=== PATIENT | male | born 1965 | race American Indian/Alaskan Native ===

== ENCOUNTER 2017-08-14 19:13 | Emergency (ER) | payer MEDICARE, MEDICAID ==
[2017-08-14 19:13] VITALS: BMI 34.9
--- NOTE | 2017-08-14 19:39 | C.PDOC ---
History Of Present Illness 52 year old male with a Hx of CHF, HTN, and defibrillator presents to the ER with a complaint of SOB for the past week, associated with intermittent numbness to the bilateral hands and sputum. Patient states he feels like he cannot breath all the time and notes it worsens at night and when trying to lay flat. Denies cough, chest pain, known Hx of heart attacks, ETOH use, substance abuse, or leg swelling. Chief Complaint (Nursing): Shortness Of Breath History Per: Patient History/Exam Limitations: no limitations Onset/Duration Of Symptoms: Days (7), Persistent Current Symptoms Are (Timing): Still Present Initiating Event: Other (Not known) Exacerbating Factor(s): Laying Flat Associated Symptoms: Tingling In Hands Or Face (Numbness), Other (Sputum). denies: Chest Pain, Bloody Cough, Productive Cough, Ankle/Leg Swelling Recent travel outside of the [place]: No Past Medical History Reviewed: Historical Data, Nursing Documentation, Vital Signs Vital Signs: Last Vital Signs Temp 97.7 F 08/14/17 19:19 Pulse 72 08/14/17 19:19 Resp 16 08/14/17 20:23 BP 151/91 H 08/14/17 19:19 Pulse Ox 92 L 08/14/17 21:07 - Medical History PMH: Anxiety, Asthma, Back Problems, Cardia Arrhythmia, CHF, HTN, Hypercholesterolemia, Sleep Apnea Surgical History: Appendectomy, Pacemaker Family History: States: Unknown Family Hx - Social History Hx Tobacco Use: No Hx Alcohol Use: No Hx Substance Use: No - Immunization History Hx Tetanus Toxoid Vaccination: No Hx Influenza Vaccination: Yes Hx Pneumococcal Vaccination: Yes Review Of Systems Cardiovascular: Negative for: Chest Pain Respiratory: Positive for: Shortness of Breath, Sputum. Negative for: Cough Musculoskeletal: Negative for: Other (Leg swelling) Neurological: Positive for: Numbness (Intermittent to the bilateral hands) Physical Exam - Physical Exam Appears: Non-toxic, No Acute Distress, Other (Awake, Alert) Skin: Normal Color, Warm, Dry Head: Atraumatic, Normacephalic Eye(s): bilateral: Normal Inspection Ear(s): Bilateral: Normal Nose: Normal Oral Mucosa: Moist Teeth: Dentures Throat: Normal, No Erythema Neck: Normal, Supple Chest: Symmetrical, No Tenderness Cardiovascular: Rhythm Regular (S1 and S2 withing normal limits), No JVD Respiratory: Normal Breath Sounds, No Rales, No Rhonchi, No Wheezing Gastrointestinal/Abdominal: Soft, No Tenderness Extremity: No Pedal Edema Pulses: Left Radial: Normal, Right Radial: Normal, Left Dorsalis Pedis: Normal, Right Dorsalis Pedis: Normal Neurological/Psych: Oriented x3, Normal Speech, Other (No focal deficits) ED Course And Treatment - Laboratory Results Result Diagrams: 08/14/17 19:58 08/14/17 19:58 O2 Sat by Pulse Oximetry: 92 (Room air) - Radiology CXR: Interpreted by Me, Viewed By Me CXR Interpretation: Yes: Other (Enlagred cardiac silhouette, defibrillator w/ wires noted, mild pulmonary vascular edema) Medical Decision Making Medical Decision Making: EKG, blood work, and CXR ordered.Pt w/u consistent with mild exacerbation of zCCHF.Will increase pts evening diuretic Disposition - Disposition Referrals: Cliff Greene MD [Staff Provider] - Disposition: HOME/ ROUTINE Disposition Time: 21:05 Condition: GOOD Additional Instructions: increase nighttime lasix to 40 mg Instructions: Heart Failure (ED) Forms: [facility] (Martiniquais) - Clinical Impression Clinical Impression: Chronic congestive heart failure - Scribe Statement The provider has reviewed the documentation as recorded by the Scribe Asael Alvarado All medical record entries made by the Scribe were at my direction and personally dictated by me. I have reviewed the chart and agree that the record accurately reflects my personal performance of the history, physical exam, medical decision making, and the department course for this patient. I have also personally directed, reviewed, and agree with the discharge instructions and disposition.
[2017-08-14 20:07] LABS: BASO # 0.1 K/uL (0.0-0.2); EOS # 0.1 K/uL (0.0-0.7); EOS % 1.5 % (0.0-4.0); LYMPH # 2.4 K/uL (1.0-4.3); MEAN CELL VOLUME 89.7 fL (80.0-94.0); MEAN CORPUSCULAR HEMOGLOBIN 28.6 pg (27.0-31.0); MEAN CORPUSCULAR HGB CONC 31.9 g/dL (33.0-37.0); MEAN PLATELET VOLUME 9.2 fL (7.2-11.7); MONO # 0.5 K/uL (0.0-0.8); MONO % 8.6 % (0.0-10.0); NRBC % 0.1 % (0.0-2.0); RED CELL DISTRIBUTION WIDTH 14.7 % (11.5-14.5); WHITE BLOOD COUNT 5.6 K/uL (4.8-10.8)
[2017-08-14 20:14] LABS: ALB/GLOB RATIO 1.1 (1.0-2.1); ALKALINE PHOSPHATASE 48 U/L (38-126); ALT/SGPT 48 U/L (21-72); AST/SGOT 22 U/L (17-59); BILIRUBIN,TOTAL 0.3 mg/dL (0.2-1.3); BLOOD UREA NITROGEN 17 mg/dL (9-20); CALCIUM 8.2 mg/dl (8.6-10.4); CARBON DIOXIDE 36 mmol/L (22-30); CHLORIDE 103 mmol/L (98-107); GFR AFRICAN-AMERICAN > 60; GLUCOSE,RANDOM 101 mg/dL (75-110); POTASSIUM 3.7 mmol/L (3.6-5.2); SODIUM 142 mmol/L (132-148); TOTAL PROTEIN 7.1 g/dL (6.3-8.3)
[2017-08-14 20:17] LABS: PARTIAL THROMBOPLASTIN TIME 28 SECONDS (21-34)
[2017-08-14 21:22] VITALS: BP 139/90; PULSE 88; RESP 18; TEMP 97.2; O2SAT 96
--- NOTE | 2017-08-15 08:08 | RAD ---
HISTORY: Sepsis Patient COMPARISON: Comparison is made to 11/21/2014 FINDINGS: LUNGS: No evidence of focal infiltrate or consolidation in the lungs. PLEURA: No evidence of significant pleural effusion. CARDIOVASCULAR: Dex silhouette is enlarged. Left-sided pacemaker/AICD is again seen in place. OSSEOUS STRUCTURES: No significant abnormalities. VISUALIZED UPPER ABDOMEN: Normal. OTHER FINDINGS: None. IMPRESSION: No evidence of significant interval change when compared to the previous study dated 11/21/2014. Cardiomegaly.
--- NOTE | 2017-08-18 11:30 | CARD ---
APPROVED REPORT EKG Measurement Heart [id number] NV 158P51 [id number] <Conclusion> Normal sinus rhythm Possible Left atrial enlargement Left ventricular hypertrophy with repolarization abnormality Cannot rule out Inferior infarct, age undetermined Abnormal ECG
== END 2017-08-14 21:40 | disposition home or self-care (01) ==
LOC: C.ER 19:13
DX: I11.0 Hypertensive heart disease with heart failure (principal); I50.9 Heart failure, unspecified; I49.9 Cardiac arrhythmia, unspecified; E78.00 Pure hypercholesterolemia, unspecified
CPT/HCPCS: 71010; 80053; 83880; 84484; 85025; 85378; 85730; 96374; 99284; J1940

== ENCOUNTER 2017-08-21 09:44 | Emergency (ER) | payer MEDICARE, MEDICAID ==
[2017-08-21 09:45] VITALS: BMI 34.9
--- NOTE | 2017-08-21 10:19 | C.PDOC ---
History Of Present Illness 52 year old male presents to ED for evaluation of shortness of breath since this morning. Pt reports being seen here 1 weeks ago for similar symptoms and was given Lasix. Denies chest pain, cough, or fever. Time Seen by Provider: 08/21/17 09:56 Chief Complaint (Nursing): Shortness Of Breath History Per: Patient History/Exam Limitations: no limitations Onset/Duration Of Symptoms: Days Current Symptoms Are (Timing): Still Present Associated Symptoms: denies: Sweating, Chest Pain, Bloody Cough, Heart Racing, Leg/Calf Pain, Ankle/Leg Swelling, Dizziness, Light-headedness, Anxiety, Tingling In Hands Or Face, Musle Spasms In Hands Or Feet Past Medical History Reviewed: Historical Data, Nursing Documentation, Vital Signs Vital Signs: Last Vital Signs Temp 98.4 F 08/21/17 11:56 Pulse 88 08/21/17 11:56 Resp 18 08/21/17 11:56 BP 136/82 08/21/17 11:56 Pulse Ox 100 08/21/17 12:15 - Medical History PMH: Anxiety, Asthma, Back Problems, Cardia Arrhythmia, CHF, HTN, Hypercholesterolemia, Sleep Apnea Denies: Chronic Kidney Disease Surgical History: Appendectomy, Pacemaker Family History: States: Unknown Family Hx - Social History Hx Tobacco Use: No Hx Alcohol Use: No Hx Substance Use: No - Immunization History Hx Tetanus Toxoid Vaccination: No Hx Influenza Vaccination: Yes Hx Pneumococcal Vaccination: Yes Review Of Systems Except As Marked, All Systems Reviewed And Found Negative. Constitutional: Negative for: Fever, Chills Cardiovascular: Negative for: Chest Pain, Palpitations Respiratory: Positive for: Shortness of Breath. Negative for: Cough, Sputum Neurological: Negative for: Headache, Dizziness Physical Exam - Physical Exam Appears: Non-toxic, No Acute Distress Skin: Normal Color, Warm, Dry Head: Atraumatic, Normacephalic Eye(s): bilateral: Normal Inspection Oral Mucosa: Moist Cardiovascular: Rhythm Regular, No Murmur Respiratory: Normal Breath Sounds, No Rales, No Rhonchi, No Wheezing Gastrointestinal/Abdominal: Soft, No Tenderness Extremity: Normal ROM, No Pedal Edema Neurological/Psych: Oriented x3, Normal Speech ED Course And Treatment - Laboratory Results Result Diagrams: 08/21/17 10:19 08/21/17 10:19 Lab Interpretation: Normal ECG: Interpreted By Me ECG Rhythm: Sinus Rhythm, Nonspecific Changes ECG Interpretation: No Acute Changes Rate From EC O2 Sat by Pulse Oximetry: 100 Pulse Ox Interpretation: Normal - Other Rad No standard instances X-Ray: Viewed By Me, Read By Radiologist Interpretation: FINDINGS: LUNGS: The interstitial markings are minimally increased/coarsened with a few scattered peribronchial cuffing changes. Findings may in part be due to diminished low lung volumes however the possibility of mild reactive/inflammatory airway disease or viral illness not excluded. Lung crawford are otherwise clear. PLEURA: No significant pleural effusion identified. No pneumothorax apparent. CARDIOVASCULAR: Heart is mildly enlarged. No change bipolar pacemaker/ defibrillator. OSSEOUS STRUCTURES : No significant abnormalities. VISUALIZED UPPER ABDOMEN: Normal. OTHER FINDINGS: None. IMPRESSION: The interstitial markings are minimally increased /coarsened with a few scattered peribronchial cuffing changes. Findings may in part be due to diminished low lung volumes however the possibility of mild reactive/inflammatory airway disease or viral illness not excluded. Lung crawford are otherwise clear Progress Note: Blood work, UA, influenza AB, CXR, EKG ordered and reviewed. Pt was given Duoneb. On re-evaluation lungs clear. Treated with decadron and zithromax. Patient requesting discharge. discharged in stable condition Reassessment Condition: Improved Disposition Counseled Patient/Family Regarding: Studies Performed, Diagnosis, Need For Followup, Rx Given - Disposition Referrals: Cliff Greene MD [Staff Provider] - Disposition: HOME/ ROUTINE Disposition Time: 12:20 Condition: STABLE Additional Instructions: Return to ED if any increase symptoms Prescriptions: Azithromycin [Zithromax] 250 mg PO DAILY #4 tab Instructions: Acute Bronchitis (ED), How to Use a Nebulizer (ED), How Your Lungs Work (ED) Forms: [facility] (Wallisian) - POA Present On Arrival: None - Clinical Impression Clinical Impression: Bronchitis - 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 - Scribe Statement The provider has reviewed the documentation as recorded by the Perry Hedrick All medical record entries made by the Scribe were at my direction and personally dictated by me. I have reviewed the chart and agree that the record accurately reflects my personal performance of the history, physical exam, medical decision making, and the department course for this patient. I have also personally directed, reviewed, and agree with the discharge instructions and disposition.
[2017-08-21 10:24] LABS: BASO # 0.1 K/uL (0.0-0.2); BASO % 1.6 % (0.0-2.0); EOS # 0.1 K/uL (0.0-0.7); EOS % 2.2 % (0.0-4.0); HEMATOCRIT 43.2 % (35.0-51.0); LYMPH # 1.3 K/uL (1.0-4.3); LYMPH % 38.7 % (20.0-40.0); MEAN CELL VOLUME 89.1 fL (80.0-94.0); MEAN CORPUSCULAR HEMOGLOBIN 28.7 pg (27.0-31.0); MEAN CORPUSCULAR HGB CONC 32.2 g/dL (33.0-37.0); MEAN PLATELET VOLUME 8.7 fL (7.2-11.7); MONO # 0.3 K/uL (0.0-0.8); MONO % 8.7 % (0.0-10.0); NRBC % 0.3 % (0.0-2.0); RED CELL DISTRIBUTION WIDTH 14.5 % (11.5-14.5); WHITE BLOOD COUNT 3.4 K/uL (4.8-10.8)
[2017-08-21] MEDS: Albuterol-Ipratrop 3 mg / 0.5 (3 ml) UD IH SCH ×2 (10:25→10:35)
[2017-08-21] MEDS ORDERED: Albuterol-Ipratrop 3 mg / 0.5 (3 ml) UD ONE (10:26)
--- NOTE | 2017-08-21 10:32 | RAD ---
HISTORY: SOB COMPARISON: Comparison chest dated 08/14/2017 TECHNIQUE: Chest PA and lateral FINDINGS: LUNGS: The interstitial markings are minimally increased/coarsened with a few scattered peribronchial cuffing changes. Findings may in part be due to diminished low lung volumes however the possibility of mild reactive/inflammatory airway disease or viral illness not excluded. Lung crawford are otherwise clear PLEURA: No significant pleural effusion identified. No pneumothorax apparent. CARDIOVASCULAR: Heart is mildly enlarged. No change bipolar pacemaker/ defibrillator. OSSEOUS STRUCTURES: No significant abnormalities. VISUALIZED UPPER ABDOMEN: Normal. OTHER FINDINGS: None. IMPRESSION: The interstitial markings are minimally increased/coarsened with a few scattered peribronchial cuffing changes. Findings may in part be due to diminished low lung volumes however the possibility of mild reactive/inflammatory airway disease or viral illness not excluded. Lung crawford are otherwise clear
[2017-08-21 10:37] LABS: ALB/GLOB RATIO 1.6 (1.0-2.1); ALKALINE PHOSPHATASE 52 U/L (38-126); ALT/SGPT 47 U/L (21-72); AST/SGOT 27 U/L (17-59); BILIRUBIN,TOTAL 0.6 mg/dL (0.2-1.3); BLOOD UREA NITROGEN 13 mg/dL (9-20); CALCIUM 8.2 mg/dl (8.6-10.4); CARBON DIOXIDE 30 mmol/L (22-30); CHLORIDE 108 mmol/L (98-107); GFR AFRICAN-AMERICAN > 60; GLUCOSE,RANDOM 140 mg/dL (75-110); POTASSIUM 4.1 mmol/L (3.6-5.2); SODIUM 143 mmol/L (132-148); TOTAL PROTEIN 6.4 g/dL (6.3-8.3)
[2017-08-21 11:49] LABS: RBC URINE < 1 /hpf (0-3); URINE BILIRUBIN NEGATIVE (NEGATIVE); URINE BLOOD NEGATIVE (NEGATIVE); URINE COLOR Yellow (YELLOW); URINE GLUCOSE (UA) NORMAL (Normal); URINE KETONE NEGATIVE (NEGATIVE); URINE LEUKOCYTE ESTERASE NEG Leu/uL (Negative); URINE PROTEIN NEGATIVE (NEGATIVE); URINE UROBILINOGEN NORMAL mg/dL (0.2-1.0); WBC URINE < 1 /hpf (0-5)
[2017-08-21 11:57] VITALS: BP 136/82; PULSE 88; RESP 18; TEMP 98.4
[2017-08-21] MEDS ORDERED: Dexamethasone 4 mg/1 ml IVP STA (12:01)
[2017-08-21 12:15] VITALS: O2SAT 100
--- NOTE | 2017-08-24 22:26 | CARD ---
APPROVED REPORT EKG Measurement Heart [id number] CO 152P41 [id number] <Conclusion> Normal sinus rhythm Possible Left atrial enlargement Left ventricular hypertrophy with QRS widening and repolarization abnormality Cannot rule out Inferior infarct, age undetermined Abnormal ECG
== END 2017-08-21 12:17 | disposition home or self-care (01) ==
LOC: C.ER 09:44
DX: J40 Bronchitis, not specified as acute or chronic (principal)
CPT/HCPCS: 71020; 80053; 81001; 82553; 83880; 84484; 85025; 87804; 93005; 94150; 94640; 96374; 99285; J1100

== ENCOUNTER 2017-09-26 17:40 | Emergency (ER) | payer MEDICARE, MEDICAID ==
[2017-09-26 17:40] VITALS: BMI 34.9
[2017-09-26 18:06] VITALS: RESP 20; O2SAT 97
--- NOTE | 2017-09-26 18:45 | C.PDOC ---
History Of Present Illness 52M c/o left shoulder pain for years since high school but worsened 2 days ago without trauma/injury. pain is worse with rom of the arm and with pushing himself up from a supine position. he has tried tylenol without relief. Time Seen by Provider: 09/26/17 18:43 Chief Complaint (Nursing): Upper Extremity Problem/Injury Past Medical History Vital Signs: Last Vital Signs Temp 98 F 09/26/17 19:33 Pulse 88 09/26/17 19:33 Resp 20 09/26/17 19:33 BP 143/81 09/26/17 19:33 Pulse Ox 97 09/26/17 19:41 - Medical History PMH: Anxiety, Asthma, Back Problems, Cardia Arrhythmia, CHF, HTN, Hypercholesterolemia, Sleep Apnea Denies: Chronic Kidney Disease Surgical History: Appendectomy, Pacemaker Family History: States: Unknown Family Hx - Social History Hx Tobacco Use: No Hx Alcohol Use: No Hx Substance Use: No - Immunization History Hx Tetanus Toxoid Vaccination: No Hx Influenza Vaccination: Yes Hx Pneumococcal Vaccination: Yes Review Of Systems Constitutional: Negative for: Fever, Chills, Weakness, Malaise Cardiovascular: Negative for: Chest Pain, Palpitations Respiratory: Positive for: Cough (chronic). Negative for: Shortness of Breath Gastrointestinal: Negative for: Nausea, Vomiting, Abdominal Pain Neurological: Negative for: Weakness, Numbness, Headache Physical Exam - Physical Exam Appears: Well, Non-toxic, No Acute Distress Skin: Warm, Dry Cardiovascular: Rhythm Regular Respiratory: No Decreased Breath Sounds, No Accessory Muscle Use, No Rales, No Rhonchi, No Stridor, No Wheezing Extremity: Normal ROM, No Deformity, No Swelling, Other (pain w rom, particularly with abduction of left shoulder. no swelling, erythema, or warmth) Pulses: Left Radial: Normal Neurological/Psych: Oriented x3, Normal Motor, Normal Sensation, Other (no focal deficits) ED Course And Treatment O2 Sat by Pulse Oximetry: 97 Medical Decision Making Medical Decision Making: ecg- nsr 74, lvh, wide qrs, no stemi shoulder left xr- no acute fracture Disposition - Disposition Referrals: Zack Billingsley III, MD [Staff Provider] - Disposition: HOME/ ROUTINE Disposition Time: 19:41 Condition: GOOD Additional Instructions: Please follow up with an orthopedic doctor. Return to the ER for any worsening symptoms or for any other concerns. Prescriptions: Naproxen [Naprosyn] 500 mg PO Q12H PRN #10 tablet PRN Reason: Pain, Moderate (4-7) Instructions: Shoulder Pain (ED) Forms: General Discharge Instructions, [facility] (Hebrew) - Clinical Impression Clinical Impression: Shoulder pain
[2017-09-26] MEDS ORDERED: Albuterol-Ipratrop 3 mg / 0.5 (3 ml) UD IH STA (19:05)
[2017-09-26] MEDS ORDERED: Albuterol-Ipratrop 3 mg / 0.5 (3 ml) UD ONE (19:28)
[2017-09-26 19:54] VITALS: BP 143/81; PULSE 88; TEMP 98
--- NOTE | 2017-09-27 12:33 | RAD ---
PROCEDURE: Radiographs of the Left Shoulder HISTORY: pain COMPARISON: No prior. FINDINGS: BONES: Normal. No fracture. JOINTS: Normal. Glenohumeral and acromioclavicular joints preserved. No osteoarthritis. SOFT TISSUES: Normal. OTHER FINDINGS: None. IMPRESSION: Normal radiographs of the left shoulder.
--- NOTE | 2017-09-28 23:32 | CARD ---
APPROVED REPORT EKG Measurement Heart [id number] ND 150P48 [id number] <Conclusion> Sinus rhythm with occasional premature ventricular complexes Possible Left atrial enlargement Left ventricular hypertrophy with QRS widening and repolarization abnormality Cannot rule out Inferior infarct, age undetermined Abnormal ECG
== END 2017-09-26 19:55 | disposition home or self-care (01) ==
LOC: C.ER 17:40
DX: M25.512 Pain in left shoulder (principal); J45.909 Unspecified asthma, uncomplicated; I10 Essential (primary) hypertension
CPT/HCPCS: 73030; 93005; 94640; 96372; 99283; J1885

== ENCOUNTER 2017-11-22 10:40 | Emergency (ER) | payer MEDICARE, MEDICAID ==
[2017-11-22 10:40] VITALS: BMI 34.9
[2017-11-22 10:46] VITALS: O2SAT 97
--- NOTE | 2017-11-22 11:13 | C.PDOC ---
History Of Present Illness RECUR SOB/PARKER X 3 DAYS. HO CHF ON LASIX 40 MG BID TOOK ROUTINE DOSE SPECIAL TESTER. NO ASSOC CP, DEFIB DC. DENIES LEG SWELLING, FEVER. HO ASTHMA BUT CURRENT SX "FEEL LIKE WATER IN MY LUNGS". EXAM MILD DIST NONTOXIC HEENT NEG LUNGS CTA B/L NO W/R/R SPEAKING FULL SENTENCES CV RRR EXT NO EDEMA REMAINDER NEG Time Seen by Provider: 11/22/17 10:53 Chief Complaint (Nursing): Shortness Of Breath History Per: Patient History/Exam Limitations: no limitations Onset/Duration Of Symptoms: Days Current Symptoms Are (Timing): Still Present Past Medical History Reviewed: Historical Data, Nursing Documentation, Vital Signs Vital Signs: Last Vital Signs Temp 97.8 F 11/22/17 13:21 Pulse 70 11/22/17 13:21 Resp 18 11/22/17 13:21 BP 131/86 11/22/17 13:21 Pulse Ox 97 11/22/17 13:21 - Medical History PMH: Anxiety, Asthma, Back Problems, Cardia Arrhythmia, CHF, HTN, Hypercholesterolemia, Sleep Apnea Surgical History: Appendectomy, Pacemaker (DEFIB) Family History: States: No Known Family Hx - Social History Hx Tobacco Use: No Hx Alcohol Use: No Hx Substance Use: No - Immunization History Hx Tetanus Toxoid Vaccination: No Hx Influenza Vaccination: Yes Hx Pneumococcal Vaccination: Yes Review Of Systems Constitutional: Negative for: Fever, Chills Cardiovascular: Negative for: Chest Pain, Palpitations Respiratory: Positive for: Shortness of Breath, SOB with Excertion Gastrointestinal: Negative for: Nausea, Vomiting Musculoskeletal: Negative for: Back Pain Skin: Negative for: Rash Neurological: Negative for: Weakness, Numbness, Headache, Dizziness Physical Exam - Physical Exam Appears: Non-toxic, No Acute Distress Skin: Warm, Dry, No Rash Head: Normacephalic Eye(s): bilateral: PERRL Nose: Normal, No Flaring, No Discharge Oral Mucosa: Moist Lips: Normal Appearing Throat: No Erythema, No Exudate Neck: Normal ROM Chest: Symmetrical Cardiovascular: Rhythm Regular, No Murmur Respiratory: No Decreased Breath Sounds, No Accessory Muscle Use, No Rales, No Rhonchi, No Wheezing, Other ( CTA B/L. SPEAKING FULL SENTENCES) Extremity: Normal ROM, No Deformity, No Swelling Neurological/Psych: Oriented x3, Normal Speech ED Course And Treatment - Laboratory Results Result Diagrams: 11/22/17 11:23 11/22/17 11:23 ECG: Interpreted By Me ECG Rhythm: Sinus Rhythm ECG Interpretation: No Acute Changes Interpretation Of ECG: TWI V5-6 UNCH 09/26/17 Rate From EC O2 Sat by Pulse Oximetry: 97 Pulse Ox Interpretation: Normal Progress - Re-Evaluation Re-evaluation Note: 11/22/17 12:12 NARD APPEARS COMFORTABLE VSS. RESULTS REVIEWED. WILL DOSE PREDNISONE, NEB REASSESS - Data Reviewed Data Reviewed: Lab, Diagnostic imaging, EKG, Old records Disposition Counseled Patient/Family Regarding: Studies Performed, Diagnosis, Need For Followup, Rx Given - Disposition Referrals: Cliff Greene MD [Staff Provider] - Disposition: HOME/ ROUTINE Disposition Time: 12:56 Condition: IMPROVED Prescriptions: Beclomethasone Dipropionate [Qvar 80 mcg] 8.7 gm IH BID #1 aer.w.adap Instructions: Asthma, Adult (DC) Forms: [facility] (Khmer), Work Excuse - Clinical Impression Clinical Impression: Asthma exacerbation
[2017-11-22 11:33] LABS: BASO % 0.9 % (0.0-2.0); EOS # 0.1 K/uL (0.0-0.7); EOS % 2.1 % (0.0-4.0); HEMOGLOBIN 12.9 g/dL (12.0-18.0); LYMPH # 1.5 K/uL (1.0-4.3); LYMPH % 38.9 % (20.0-40.0); MEAN CELL VOLUME 88.7 fL (80.0-94.0); MEAN CORPUSCULAR HEMOGLOBIN 29.4 pg (27.0-31.0); MEAN CORPUSCULAR HGB CONC 33.1 g/dL (33.0-37.0); MEAN PLATELET VOLUME 9.1 fL (7.2-11.7); MONO # 0.3 K/uL (0.0-0.8); MONO % 8.7 % (0.0-10.0); NEUT % 49.4 % (50.0-75.0); NRBC % 0.1 % (0.0-2.0); RBC 4.4 Mil/uL (4.40-5.90); RED CELL DISTRIBUTION WIDTH 14.2 % (11.5-14.5)
[2017-11-22 11:45] LABS: CALCIUM 8.2 mg/dl (8.6-10.4)
[2017-11-22 11:50] LABS: ALB/GLOB RATIO 1.2 (1.0-2.1); ALBUMIN 3.7 g/dL (3.5-5.0)
[2017-11-22 12:01] LABS: TROPONIN I 0.023 ng/mL (0.00-0.120)
[2017-11-22] MEDS ORDERED: Albuterol-Ipratrop 3 mg / 0.5 (3 ml) UD IH STA (12:08)
--- NOTE | 2017-11-22 12:19 | RAD ---
HISTORY: SOB COMPARISON: 08/21/2017 TECHNIQUE: Chest PA and lateral FINDINGS: LUNGS: No active pulmonary disease. PLEURA: No significant pleural effusion identified. No pneumothorax apparent. CARDIOVASCULAR: Mild cardiomegaly. AICD. No congestive change. OSSEOUS STRUCTURES: No significant abnormalities. VISUALIZED UPPER ABDOMEN: Normal. OTHER FINDINGS: None. IMPRESSION: No active disease.
[2017-11-22] MEDS ORDERED: Albuterol-Ipratrop 3 mg / 0.5 (3 ml) UD ONE (12:46)
[2017-11-22 13:22] VITALS: BP 131/86; PULSE 70; RESP 18; TEMP 97.8
== END 2017-11-22 13:27 | disposition home or self-care (01) ==
LOC: C.ER 10:40
DX: J45.901 Unspecified asthma with (acute) exacerbation (principal); I49.9 Cardiac arrhythmia, unspecified; I10 Essential (primary) hypertension; E78.00 Pure hypercholesterolemia, unspecified

== ENCOUNTER 2017-12-22 23:23 | Emergency (ER) | payer MEDICARE, MEDICAID ==
[2017-12-22 23:24] VITALS: BMI 34.9
[2017-12-22 23:40] VITALS: BP 116/75; PULSE 92; TEMP 97.2; O2SAT 96
--- NOTE | 2017-12-23 00:09 | C.PDOC ---
History Of Present Illness 52M c/o left shoulder pain for years since high school ( hx of left shoulder dislocation)but worsened for past 3 months " after pulled my left arm while carrying heavy bag". pain is localized over Left upper shoulder, worse with Left arm lifting. Pt admits, was seen here few months ago due to same complaints and was given Rx with good improvement n pain, request refill. Otherwise, pt denies CP, SOB, dyspnea, palpitation, denies weakness, sensory or vascular deficits to Left arm. Ambulate to ED , not in any apparent distress. Time Seen by Provider: 12/22/17 23:55 Chief Complaint (Nursing): Upper Extremity Problem/Injury History Per: Patient Onset/Duration Of Symptoms: Gradual Past Medical History Reviewed: Historical Data, Nursing Documentation, Vital Signs Vital Signs: Last Vital Signs Temp 97.2 F L 12/22/17 23:37 Pulse 92 H 12/22/17 23:37 Resp 18 12/22/17 23:37 BP 116/75 12/22/17 23:37 Pulse Ox 96 12/22/17 23:37 - Medical History PMH: Anxiety, Asthma, Back Problems, Cardia Arrhythmia, CHF, HTN, Hypercholesterolemia, Sleep Apnea Denies: Chronic Kidney Disease Surgical History: Appendectomy (PT NOT SURE), Pacemaker (DEFIB) Family History: States: Unknown Family Hx - Social History Hx Tobacco Use: No Hx Alcohol Use: No Hx Substance Use: No - Immunization History Hx Tetanus Toxoid Vaccination: No Hx Influenza Vaccination: Yes Hx Pneumococcal Vaccination: Yes Review Of Systems Except As Marked, All Systems Reviewed And Found Negative. Constitutional: Negative for: Fever, Chills ENT: Negative for: Throat Pain Cardiovascular: Negative for: Chest Pain, Palpitations, Orthopnea, Edema, Light Headedness Respiratory: Negative for: Cough, Shortness of Breath, Wheezing Gastrointestinal: Negative for: Nausea, Vomiting, Abdominal Pain Musculoskeletal: Positive for: Shoulder Pain Skin: Negative for: Rash, Bruising Neurological: Negative for: Weakness, Numbness, Headache, Dizziness Physical Exam - Physical Exam Appears: Well, Non-toxic, No Acute Distress Skin: Normal Color, Warm, No Rash, No Ecchymosis Head: Normacephalic Eye(s): bilateral: PERRL Nose: No Flaring Oral Mucosa: Moist Neck: No Midline Cervical Tenderness, No Paracervical Tenderness, No Step Off Deformity, Supple Back: No CVA Tenderness, No Vertebral Tenderness Extremity: Normal ROM (LUE without difficulty), Tenderness (mild over superior aspect left shoulder.), Capillary Refill (less than 2sec to left hand), No Deformity, No Swelling Neurological/Psych: Oriented x3, Normal Speech, Normal Motor, Normal Sensation, Normal Reflexes ED Course And Treatment O2 Sat by Pulse Oximetry: 96 Pulse Ox Interpretation: Normal Progress Note: Records review from previous ED visits. Pt was seen here in ED on 09/26/17 due to same left shoulder pain complaint, received Rx: naprosyn. On discharge, pt requested Rx: Flexeril ( was not seen in records). EKG, Xray of left shoulder review from previous visit- no acute findings. On re-eval, pt is afebrile, hemodynamicaly stable. Non-toxic. Lungs: CTA B/L,BS equal B/L. CVS : (+)S1S2, reg. LUE: mild tenderness over superior aspect Left shoulder. FAROM , no neurovascular deficits. Pt has clinical findings c/w Left shoulder pain r/ o rotator cuff tendonitis. Pt advised and ref. to F/u with PMD, Ortho in 1-2 days for re-eval. return if any worsening or new hcanges. Disposition Counseled Patient/Family Regarding: Diagnosis, Need For Followup, Rx Given - Disposition Referrals: Cliff Greene MD [Staff Provider] - Disposition: HOME/ ROUTINE Disposition Time: 00:07 Condition: STABLE Additional Instructions: Light duty to Left arm/shoulder. Avoid left arm lifting. Take pain medication as prescribed Follow up with PMD and Orthopedist in 2 days for re-evaluation. Return to ED if any worsening or new changes. Prescriptions: Cyclobenzaprine [Cyclobenzaprine HCl] 10 mg PO BID #10 tab Naproxen [Naprosyn] 1 tab PO BID PRN #30 tab PRN Reason: Pain Instructions: Shoulder Pain (DC), Rotator Cuff Tendinitis Stretching Exercises - Clinical Impression Clinical Impression: Rotator cuff tendonitis
[2017-12-23 00:48] VITALS: RESP 20
== END 2017-12-23 00:48 | disposition home or self-care (01) ==
LOC: C.ER 23:23
DX: M77.8 Other enthesopathies, not elsewhere classified (principal)
CPT/HCPCS: 96372; 99284; J1885

== ENCOUNTER → 2018-01-20 11:51 | Emergency (ER) | payer MEDICARE, MEDICAID ==
[2018-01-20 11:51] VITALS: BMI 34.9
== END | disposition left against medical advice (07) ==
LOC: C.ER 11:51
DX: Z02.89 Encounter for other administrative examinations (principal); R06.02 Shortness of breath

== ENCOUNTER 2018-02-15 13:55 | Emergency (ER) | payer MEDICARE, MEDICAID ==
[2018-02-15 13:55] VITALS: BMI 34.9
[2018-02-15 14:03] VITALS: BP 124/86; PULSE 74; RESP 18; TEMP 97.5; O2SAT 96
--- NOTE | 2018-02-15 14:29 | C.PDOC ---
History Of Present Illness 52 y/o male presents to the ED with complaints of nasal congestion and sinus pressure for the last 3 days. Patient also notes some associated lightheadedness that he thinks is related to his sinus pressure. He denies fever, productive cough, purulent discharge from nose, ear pain, sore throat, SOB, chest pain, palpitations, rash. Time Seen by Provider: 02/15/18 14:11 Chief Complaint (Nursing): Cough, Cold, Congestion History Per: Patient History/Exam Limitations: None Onset/Duration Of Symptoms: Days (3) Current Symptoms Are (Timing): Still Present Symptoms Have Been: Continuous Severity: Mild Past Medical History Reviewed: Historical Data, Nursing Documentation, Vital Signs Vital Signs: Last Vital Signs Temp 97.5 F L 02/15/18 14:00 Pulse 74 02/15/18 14:00 Resp 18 02/15/18 14:00 BP 124/86 02/15/18 14:00 Pulse Ox 96 02/15/18 15:15 - Medical History PMH: Anxiety, Asthma, Back Problems, Cardia Arrhythmia, CHF, HTN, Hypercholesterolemia, Sleep Apnea Surgical History: Appendectomy (PT NOT SURE), Pacemaker (DEFIB) Family History: States: No Known Family Hx - Social History Hx Tobacco Use: No Hx Alcohol Use: No Hx Substance Use: No - Immunization History Hx Tetanus Toxoid Vaccination: No Hx Influenza Vaccination: Yes Hx Pneumococcal Vaccination: Yes Review Of Systems Constitutional: Negative for: Fever, Chills ENT: Positive for: Nose Congestion, Other (sinus pressure). Negative for: Ear Pain, Throat Pain Cardiovascular: Negative for: Chest Pain, Palpitations Respiratory: Negative for: Cough, Shortness of Breath Neurological: Positive for: Other (lightheadedness) Physical Exam - Physical Exam Appears: Well, Non-toxic, No Acute Distress Eye(s): bilateral: Normal Inspection Ear(s): Bilateral: Normal Nose: Normal, No Discharge, No Deformity, No Tenderness ((-) tenderness to palpation over maxillary and frontal sinuses) Throat: Normal, No Erythema, No Exudate Neck: Supple Cardiovascular: Rhythm Regular Respiratory: Normal Breath Sounds, No Rales, No Rhonchi, No Wheezing, Other ( speaking in full setnences) Neurological/Psych: Oriented x3, Normal Speech, Normal Cognition Gait: Steady ED Course And Treatment O2 Sat by Pulse Oximetry: 96 (RA) Pulse Ox Interpretation: Normal Progress Note: Patient has h/o HTN & CHF, so explained to him that decongestants such as sudafed are not good for him. Rx for Nasonex given for patient to try. He was instructed to follow up with PMD/clinic in 1-2 days, and understands he should return to ED if symptoms worsen. Disposition Counseled Patient/Family Regarding: Diagnosis, Need For Followup, Rx Given - Disposition Referrals: Cliff Greene MD [Staff Provider] - Disposition: HOME/ ROUTINE Disposition Time: 14:30 Condition: STABLE Additional Instructions: FOLLOW UP WITH YOUR DOCTOR IN 1-2 DAYS USE MEDICATION NEEDED RETURN TO ER IF SYMPTOMS WORSEN Prescriptions: Mometasone Furoate [Nasonex] 0.05 mg NS DAILY #1 bottle Instructions: Cough, Runny Nose, and the Common Cold (DC) Forms: [employer] (Sinhala) Print Language: HONG KONGER - POA Present On Arrival: None - Clinical Impression Clinical Impression: Nasal congestion, Viral disease, Sinus pressure - Scribe Statement The provider has reviewed the documentation as recorded by the Scribe Penny Keen All medical record entries made by the Scribe were at my direction and personally dictated by me. I have reviewed the chart and agree that the record accurately reflects my personal performance of the history, physical exam, medical decision making, and the department course for this patient. I have also personally directed, reviewed, and agree with the discharge instructions and disposition.
== END 2018-02-15 14:45 | disposition home or self-care (01) ==
LOC: C.ER 13:55
DX: B34.9 Viral infection, unspecified (principal); R09.81 Nasal congestion

== ENCOUNTER 2018-06-01 23:03 | Emergency (ER) | payer MEDICARE, MEDICAID ==
[2018-06-01 23:03] VITALS: BMI 34.9
[2018-06-01 23:11] VITALS: RESP 20; O2SAT 95
--- NOTE | 2018-06-01 23:39 | C.PDOC ---
History Of Present Illness Patient presents to the ER with a complaint of SOB. Patient states he feels better when he is sitting as opposed to laying down. Patient is currently speaking in complete sentences, denies chest pain, fever, chills, nausea, or vomiting. Time Seen by Provider: 06/01/18 23:37 Chief Complaint (Nursing): Shortness Of Breath History Per: Patient History/Exam Limitations: no limitations Onset/Duration Of Symptoms: Days Current Symptoms Are (Timing): Still Present Initiating Event: Other (Not known) Exacerbating Factor(s): Laying Flat Current Respiratory Medications: None Severity: Moderate Pain Scale Rating Of: 4 Associated Symptoms: Other ((+) SOB (-) Nausea, Vomiting). denies: Fever, Chills, Chest Pain Recent travel outside of the [place]: No Past Medical History Reviewed: Historical Data, Nursing Documentation, Vital Signs Vital Signs: Last Vital Signs Temp 98 F 06/01/18 23:09 Pulse 88 06/01/18 23:09 Resp 20 06/02/18 00:00 BP 145/88 06/01/18 23:09 Pulse Ox 95 06/02/18 00:34 - Medical History PMH: Anxiety, Asthma, Back Problems, Cardia Arrhythmia, CHF, HTN, Hypercholesterolemia, Sleep Apnea Denies: Chronic Kidney Disease Surgical History: Pacemaker (DEFIB) Denies: Appendectomy Family History: States: No Known Family Hx - Social History Hx Tobacco Use: No Hx Alcohol Use: No Hx Substance Use: No - Immunization History Hx Tetanus Toxoid Vaccination: No Hx Influenza Vaccination: Yes Hx Pneumococcal Vaccination: Yes Review Of Systems Constitutional: Negative for: Fever, Chills Cardiovascular: Negative for: Chest Pain, Palpitations Respiratory: Positive for: Shortness of Breath. Negative for: Cough Gastrointestinal: Negative for: Nausea, Vomiting Neurological: Negative for: Weakness, Numbness Physical Exam - Physical Exam Appears: Non-toxic Skin: Warm, Dry Head: Normacephalic Oral Mucosa: Moist Chest: No Tenderness, Other (Pacemaker defibrillator to left chest wall) Cardiovascular: Rhythm Regular Respiratory: Rales (At bases), No Rhonchi, No Wheezing Gastrointestinal/Abdominal: Soft, No Tenderness, Distention, Other (Tympanic to percussion) Extremity: No Pedal Edema Neurological/Psych: Oriented x3 ED Course And Treatment - Laboratory Results Result Diagrams: 06/01/18 23:41 06/01/18 23:41 ECG: Interpreted By Me, Viewed By Me ECG Rhythm: Sinus Rhythm (80), Nonspecific Changes (lvh with repo, unchanged from 11/22/17) O2 Sat by Pulse Oximetry: 95 (Room air) Pulse Ox Interpretation: Normal - Radiology CXR: Interpreted by Me, Viewed By Me CXR Interpretation: Yes: Cardiomegaly. No: Infiltrates, Fracture, Other (aicd lefty, mild vasc congestion) Progress Note: Blood work, EKG, and CXR ordered. Aspirin administered. Reevaluation Time: 01:16 Reassessment Condition: Improved Against Medical Advice - AMA Patient Left Against Medical Advice: The patient declines admission to the hospital and wishes to leave the Emergency Department. This action is against my medical advice. This decision was made wi th informed refusal. The patient was told that admission to the hospital is necessary. Explanation of the reasons why were discussed. The risks of leaving were explained to the patient and include, but are not limited to, worsening of known or currently unknown conditions, permanent disability and from undiagnosed or untreated conditions. The patient has the capacity to make this informed decision and understands my explanation of the current medical problem and risks of leaving. The patient voluntarily accepts these risks and signed an AMA form documenting our conversation. The patient was given the opportunity to ask questions and reconsider. The patient was encouraged to return to the Emergency Department at any time for further care. Disposition Counseled Patient/Family Regarding: Studies Performed, Diagnosis, Need For Followup - Disposition Referrals: Cliff Greene MD [Primary Care Provider] - Disposition: AGAINST MEDICAL ADVICE Disposition Time: 23:30 Condition: FAIR Instructions: Shortness of Breath (Dyspnea) (DC) Forms: [employer] (Chinese) - Clinical Impression Clinical Impression: Dyspnea - Scribe Statement The provider has reviewed the documentation as recorded by the Scribe Asael Alvarado All medical record entries made by the Scribe were at my direction and personally dictated by me. I have reviewed the chart and agree that the record accurately reflects my personal performance of the history, physical exam, medical decision making, and the department course for this patient. I have also personally directed, reviewed, and agree with the discharge instructions and disposition.
[2018-06-01 23:44] LABS: BASO % 0.9 % (0.0-2.0); EOS % 0.3 % (0.0-4.0); HEMOGLOBIN 13.4 g/dL (12.0-18.0); LYMPH # 0.7 K/uL (1.0-4.3); LYMPH % 16.3 % (20.0-40.0); MEAN CELL VOLUME 88.8 fL (80.0-94.0); MEAN CORPUSCULAR HGB CONC 33.7 g/dL (33.0-37.0); MEAN PLATELET VOLUME 9.2 fL (7.2-11.7); MONO # 0.1 K/uL (0.0-0.8); MONO % 2.5 % (0.0-10.0); NEUT # 3.6 K/uL (1.8-7.0); NRBC % 0.1 % (0.0-2.0); RBC 4.49 Mil/uL (4.40-5.90); WHITE BLOOD COUNT 4.5 K/uL (4.8-10.8)
[2018-06-01] MEDS ORDERED: Aspirin 325 mg EC Tablets PO STA (23:51)
[2018-06-01 23:53] LABS: INR 1.1; PROTHROMBIN TIME 12.3 SECONDS (9.7-12.2)
[2018-06-01 23:56] LABS: ALB/GLOB RATIO 1.5 (1.0-2.1); CALCIUM 9.2 mg/dl (8.6-10.4)
[2018-06-02 00:07] LABS: TROPONIN I 0.024 ng/mL (0.00-0.120)
[2018-06-02] MEDS ORDERED: Aspirin 325 mg EC Tablets PO ONE (00:33)
[2018-06-02 01:08] LABS: VENOUS BLOOD GAS BASE EXCESS 0.8 mmol/L (0.0-2.0); VENOUS BLOOD GAS PCO2 46 mmHg (40-60); VENOUS BLOOD GAS PO2 76 mm/Hg (30-55); VENOUS BLOOD PH 7.37 (7.32-7.43)
[2018-06-02 01:32] VITALS: BP 115/78; PULSE 90; TEMP 98.2
--- NOTE | 2018-06-02 10:58 | RAD ---
Date of service: 06/02/2018 PROCEDURE: CHEST RADIOGRAPH, 1 VIEW HISTORY: SOB COMPARISON: None available. FINDINGS: LUNGS: Pulmonary vascular +Thora. PLEURA: No pneumothorax or pleural fluid seen. CARDIOVASCULAR: Cardiomegaly. Mild pulmonary vascular congestion similar to that seen previously. Position/configuration of pacemaker Satisfactory. OSSEOUS STRUCTURES: No significant abnormalities. VISUALIZED UPPER ABDOMEN: Normal. OTHER FINDINGS: None. IMPRESSION: Cardiomegaly/mild pulmonary vascular congestion. Similar findings identified previously. Concordant results with the preliminary interpretation rendered by the emergency department physician procedure.
--- NOTE | 2018-06-02 11:37 | CARD ---
APPROVED REPORT Date of service: 06/01/2018 EKG Measurement Heart [id number] <Conclusion> Normal sinus rhythm Possible Left atrial enlargement Left ventricular hypertrophy with QRS widening and repolarization abnormality Cannot rule out Inferior infarct, age undetermined Abnormal ECG
== END 2018-06-02 01:20 | disposition left against medical advice (07) ==
LOC: C.ER 23:03 → SUPCPDRO 23:03 → C.ER 06-02 01:20
DX: R06.00 Dyspnea, unspecified (principal)

== ENCOUNTER 2018-07-11 11:31 | Emergency (ER) | payer MEDICARE, MEDICAID ==
[2018-07-11 11:31] VITALS: BMI 34.9
[2018-07-11 11:37] VITALS: BP 122/79; PULSE 80; RESP 18; TEMP 97.8; O2SAT 96
--- NOTE | 2018-07-11 12:25 | C.PDOC ---
History Of Present Illness 52 year old male presents to the ED complaining of neck pain from a tumor that radiates to left shoulder and left arm. Notes he has a mass on his cervical spine for a year. Pt was seen by PMD and was referred for CT scan and will see a surgeon as well. Reports he took Tylenol and Motrin with no relief over 8 hrs ago. States he is going to see his PMD, Dr. Sheth tomorrow. Denies any weakness, numbness, or any other symptoms. Time Seen by Provider: 07/11/18 12:04 Chief Complaint (Nursing): Back Pain History Per: Patient History/Exam Limitations: no limitations Onset/Duration Of Symptoms: Days Current Symptoms Are (Timing): Still Present Quality Of Discomfort: "Pain" Previous Symptoms: None Associated Symptoms: None Past Medical History Reviewed: Historical Data, Nursing Documentation, Vital Signs Vital Signs: Last Vital Signs Temp 97.8 F 07/11/18 11:35 Pulse 80 07/11/18 11:35 Resp 18 07/11/18 11:35 BP 122/79 07/11/18 11:35 Pulse Ox 96 07/11/18 11:35 - Medical History PMH: Anxiety, Asthma, Back Problems, Cardia Arrhythmia, CHF, HTN, Hypercholesterolemia, Sleep Apnea Denies: Chronic Kidney Disease Surgical History: Pacemaker (DEFIB) Denies: Appendectomy Family History: States: No Known Family Hx - Social History Hx Tobacco Use: No Hx Alcohol Use: No Hx Substance Use: No - Immunization History Hx Tetanus Toxoid Vaccination: No Hx Influenza Vaccination: Yes Hx Pneumococcal Vaccination: Yes Review Of Systems Except As Marked, All Systems Reviewed And Found Negative. Musculoskeletal: Positive for: Other (posterior neck pain that radiates to left shoulder) Neurological: Negative for: Weakness, Numbness Physical Exam - Physical Exam Appears: Well, Non-toxic Skin: Warm, Dry Head: Atraumatic, Normacephalic Eye(s): bilateral: Normal Inspection Nose: Normal Oral Mucosa: Moist Neck: Other (soft mass to distal left cervical spine. no warmth, no erythema, no evidence of abscess. ) Lymphatic: Normal Exam Chest: Symmetrical Cardiovascular: Rhythm Regular Respiratory: Normal Breath Sounds Back: No Decreased ROM, No Muscle Spasm, No Paraspinal Tenderness Extremity: Normal ROM Extremity: Bilateral: Atraumatic, Normal Color And Temperature, Normal ROM Neurological/Psych: Oriented x3, Normal Speech, Normal Motor, Normal Sensation Gait: Steady ED Course And Treatment O2 Sat by Pulse Oximetry: 96 (RA) Pulse Ox Interpretation: Normal Reassessment Condition: Improved Medical Decision Making Medical Decision Making: Plan - Toradol 60mg IM On re-examination, patient is resting comfortably in no acute distress. Patient reports improvement of symptoms. Patient given follow up instructions. Instructed to return to ER if symptoms worsen or new symptoms arise. Disposition Counseled Patient/Family Regarding: Diagnosis, Need For Followup, Rx Given - Disposition Referrals: Cliff Sheth MD [Staff Provider] - Disposition: HOME/ ROUTINE Disposition Time: 12:37 Condition: STABLE Additional Instructions: FOLLOW UP WITH DR. SHETH TOMORROW FOR GENERAL SURGEON REFERRAL AND IMAGING STUDIES. IF PAIN GETS WORSE OR ANY NEW CONCERNING SYMPTOMS DEVELOP RETURN TO ED. Instructions: [place] Forms: [facility] (Beninese), General Discharge Instructions - Clinical Impression Clinical Impression: Mass in neck - PA / DIRECTOR OF DISTRICT OFFICE / Resident Statement MD/DO has reviewed & agrees with the documentation as recorded. - Scribe Statement The provider has reviewed the documentation as recorded by the Scribjavad Frost All medical record entries made by the Eseibjavad were at my direction and personally dictated by me. I have reviewed the chart and agree that the record accurately reflects my personal performance of the history, physical exam, medical decision making, and the department course for this patient. I have also personally directed, reviewed, and agree with the discharge instructions and disposition.
== END 2018-07-11 12:51 | disposition home or self-care (01) ==
LOC: C.ER 11:31
DX: R22.1 Localized swelling, mass and lump, neck (principal)
CPT/HCPCS: 96372; 99284; J1885

== ENCOUNTER 2018-07-15 02:17 | Emergency (ER) | payer MEDICARE, MEDICAID ==
[2018-07-15 02:17] VITALS: BMI 34.9
[2018-07-15 02:44] VITALS: BP 129/90; PULSE 91; RESP 20; O2SAT 96
--- NOTE | 2018-07-15 02:52 | C.PDOC ---
History Of Present Illness 52 year old male with PMHx of lipoma presents to the ED for evaluation of lipoma to his posterior left neck area for the past year but states more recently started bothering him more. Patient states his pain is radiating down his let shoulder and down his left arm. Patient reports he had an appointment for a MRI today but was not able to due it due to having a pacemaker. Patient was seen in the ED on 07/11/18 for same presentation. Patient denies injury, fall, trauma, weakness, numbness, headache, dizziness, visual changes, CP, SOB, nausea, vomit. Time Seen by Provider: 07/15/18 02:36 Chief Complaint (Nursing): Upper Extremity Problem/Injury History Per: Patient History/Exam Limitations: no limitations Onset/Duration Of Symptoms: Persistent Current Symptoms Are (Timing): Still Present Quality: "Pain" Recent travel outside of the [place]: No Additional History Per: Patient Past Medical History Reviewed: Historical Data, Nursing Documentation, Vital Signs Vital Signs: Last Vital Signs Temp Pulse 91 H 07/15/18 02:28 Resp 20 07/15/18 02:28 BP 129/90 07/15/18 02:28 Pulse Ox 96 07/15/18 02:28 - Medical History PMH: Anxiety, Asthma, Back Problems, Cardia Arrhythmia, CHF, HTN, Hypercholesterolemia, Sleep Apnea Denies: Chronic Kidney Disease Surgical History: Pacemaker (DEFIB) Denies: Appendectomy Family History: States: Unknown Family Hx - Social History Hx Tobacco Use: No Hx Alcohol Use: No Hx Substance Use: No - Immunization History Hx Tetanus Toxoid Vaccination: No Hx Influenza Vaccination: Yes Hx Pneumococcal Vaccination: Yes Review Of Systems Constitutional: Negative for: Fever, Chills Eyes: Negative for: Vision Change Cardiovascular: Negative for: Chest Pain Respiratory: Negative for: Cough, Shortness of Breath Gastrointestinal: Negative for: Nausea, Vomiting Musculoskeletal: Positive for: Neck Pain Skin: Negative for: Rash Neurological: Negative for: Weakness, Numbness, Headache, Dizziness Physical Exam - Physical Exam Appears: Non-toxic, No Acute Distress Skin: Normal Color, Warm, Dry Head: Atraumatic, Normacephalic Eye(s): bilateral: Normal Inspection, PERRL, EOMI Oral Mucosa: Moist Neck: Normal ROM, Supple, Other (left posterior neck lipoma, area is mobile soft non fluctuant no erythema, warmth. ) Chest: Symmetrical Cardiovascular: Rhythm Regular Respiratory: Normal Breath Sounds, No Rales, No Rhonchi, No Wheezing Gastrointestinal/Abdominal: Soft, No Tenderness, No Guarding, No Rebound Back: Muscle Spasm (along left trapezius) Extremity: Normal ROM, No Tenderness, No Swelling Neurological/Psych: Oriented x3, Normal Speech, Normal Cognition Gait: Steady ED Course And Treatment O2 Sat by Pulse Oximetry: 96 (On RA) Pulse Ox Interpretation: Normal Medical Decision Making Medical Decision Making: Plan: * Toradol 30 mg IM On reassessment, patient is resting comfortably, and is in no acute distress. Patient was instructed to follow up with physician/clinic in 1-2 days for further evaluation. Disposition Counseled Patient/Family Regarding: Diagnosis, Need For Followup - Disposition Referrals: Cliff Greene MD [Staff Provider] - Disposition Time: 02:49 Condition: STABLE Prescriptions: Cyclobenzaprine [Cyclobenzaprine HCl] 10 mg PO TID PRN #20 tab PRN Reason: Muscle Spasm Naproxen [Naprosyn] 500 mg PO BID PRN #20 tablet PRN Reason: Pain, Moderate (4-7) Instructions: Lipoma , Muscle Spasms (DC) Forms: [facility] (Jamaican), General Discharge Instructions - POA Present On Arrival: None - Clinical Impression Clinical Impression: Lipoma, Muscle spasm of left shoulder - Scribe Statement The provider has reviewed the documentation as recorded by the Scribe Jamey Juarez All medical record entries made by the Scribe were at my direction and personally dictated by me. I have reviewed the chart and agree that the record accurately reflects my personal performance of the history, physical exam, medical decision making, and the department course for this patient. I have also personally directed, reviewed, and agree with the discharge instructions and disposition.
== END 2018-07-15 03:16 | disposition home or self-care (01) ==
LOC: C.ER 02:17
DX: M62.838 Other muscle spasm (principal); D17.0 Benign lipomatous neoplasm of skin and subcutaneous tissue of head, face and neck; E78.00 Pure hypercholesterolemia, unspecified; I50.9 Heart failure, unspecified; I10 Essential (primary) hypertension
CPT/HCPCS: 96372; 99284; J1885

== ENCOUNTER 2018-09-06 07:30 | Emergency (ER) | payer MEDICARE, MEDICAID ==
[2018-09-06 07:31] VITALS: BMI 34.9
[2018-09-06 07:34] VITALS: TEMP 97.9
[2018-09-06] MEDS ORDERED: Albuterol-Ipratrop 3 mg / 0.5 (3 ml) UD INH STA (08:28)
[2018-09-06] MEDS ORDERED: Albuterol-Ipratrop 3 mg / 0.5 (3 ml) UD ONE (08:51)
[2018-09-06 09:07] VITALS: O2SAT 99
[2018-09-06 09:11] VITALS: RESP 18
[2018-09-06 09:15] LABS: BASO % 0.8 % (0.0-2.0); EOS % 0.9 % (0.0-4.0); HEMOGLOBIN 12.9 g/dL (12.0-18.0); LYMPH % 40.5 % (20.0-40.0); MEAN CORPUSCULAR HEMOGLOBIN 29.8 pg (27.0-31.0); MEAN CORPUSCULAR HGB CONC 32.2 g/dL (33.0-37.0); MEAN PLATELET VOLUME 9.6 fL (7.2-11.7); MONO # 0.4 K/uL (0.0-0.8); MONO % 8.1 % (0.0-10.0); NEUT # 2.5 K/uL (1.8-7.0); NEUT % 49.7 % (50.0-75.0); NRBC % 0.1 % (0.0-2.0); RBC 4.31 Mil/uL (4.40-5.90); RED CELL DISTRIBUTION WIDTH 14.3 % (11.5-14.5); WHITE BLOOD COUNT 5.1 K/uL (4.8-10.8)
--- NOTE | 2018-09-06 09:17 | C.PDOC ---
History Of Present Illness 53 year old male, whose past medical history includes asthma, presents to the ED for evaluation of asthma exacerbation. Patient reports shortness of breath since this morning. He states he ran out of his Prednisone, from which he usually finds relief. Patient denies fever, chills, chest pain. Time Seen by Provider: 09/06/18 07:49 Chief Complaint (Nursing): Shortness Of Breath History Per: Patient History/Exam Limitations: no limitations Onset/Duration Of Symptoms: Hrs Current Symptoms Are (Timing): Still Present Current Respiratory Medications: See Home Med List Past Medical History Reviewed: Historical Data, Nursing Documentation, Vital Signs Vital Signs: Last Vital Signs Temp 97.9 F 09/06/18 07:33 Pulse 75 09/06/18 08:44 Resp 18 09/06/18 08:44 BP 105/59 L 09/06/18 08:44 Pulse Ox 99 09/06/18 08:44 - Medical History PMH: Anxiety, Asthma, Back Problems, Cardia Arrhythmia, CHF, HTN, Hy percholesterolemia, Sleep Apnea Denies: Chronic Kidney Disease Surgical History: Pacemaker (DEFIB) Denies: Appendectomy Family History: States: Unknown Family Hx - Social History Hx Tobacco Use: No Hx Alcohol Use: No Hx Substance Use: No - Immunization History Hx Tetanus Toxoid Vaccination: No Hx Influenza Vaccination: Yes Hx Pneumococcal Vaccination: Yes Review Of Systems Constitutional: Negative for: Fever, Chills Cardiovascular: Negative for: Chest Pain Respiratory: Positive for: Shortness of Breath Physical Exam - Physical Exam Appears: Non-toxic, No Acute Distress Skin: Normal Color, Warm, Dry Head: Atraumatic, Normacephalic Eye(s): bilateral: Normal Inspection Oral Mucosa: Moist Neck: Supple Chest: Symmetrical, No Deformity, No Tenderness Cardiovascular: Rhythm Regular, No Murmur Respiratory: No Rales, No Rhonchi, Wheezing (expiratory ) Extremity: Normal ROM, Capillary Refill (less than 2 seconds ) Neurological/Psych: Oriented x3, Normal Speech, Normal Cognition ED Course And Treatment - Laboratory Results Result Diagrams: 09/06/18 09:03 09/06/18 09:03 O2 Sat by Pulse Oximetry: 99 (on RA ) Pulse Ox Interpretation: Normal Medical Decision Making Medical Decision Making: Assessment: shortness of breath Plan: * bloodwork * urinalysis * CXR * EKG * albuterol INH * solu-medrol IVP * reassess and disposition Progress: Bloodwork, CXR, EKG ordered and reviewed. Albuterol INH and Solu-Medrol IVP given. 09 - upon reevaluating patient he is noted to have eloped from department. Disposition Counseled Patient/Family Regarding: Studies Performed, Diagnosis - Disposition Disposition: ELOPEMENT - ER ONLY Disposition Time: 09:42 Condition: STABLE Forms: [facility] (Indonesian) - Clinical Impression Clinical Impression: Asthma exacerbation - Scribe Statement The provider has reviewed the documentation as recorded by the Scribe (Amy Hedrick) Provider Attestation: All medical record entries made by the Scribe were at my direction and personally dictated by me. I have reviewed the chart and agree that the record accurately reflects my personal performance of the history, physical exam, medical decision making, and the department course for this patient. I have also personally directed, reviewed, and agree with the discharge instructions and disposition.
[2018-09-06 09:20] LABS: MEAN CELL VOLUME 92.6 fL (80.0-94.0)
[2018-09-06 09:25] LABS: ALB/GLOB RATIO 1.6 (1.0-2.1); ALBUMIN 3.8 g/dL (3.5-5.0); CALCIUM 9.1 mg/dl (8.6-10.4)
[2018-09-06 09:33] LABS: TROPONIN I 0.06 ng/mL (0.00-0.120)
[2018-09-06 09:53] VITALS: BP 105/67; PULSE 80
--- NOTE | 2018-09-06 10:04 | RAD ---
Date of service: 09/06/2018 PROCEDURE: CHEST RADIOGRAPH, 1 VIEW HISTORY: SOB COMPARISON: 06/02/2018 FINDINGS: LUNGS: Clear. PLEURA: No pneumothorax or pleural fluid seen. CARDIOVASCULAR: No aortic atherosclerotic calcification present. Cardiomegaly. AICD. No congestive change. OSSEOUS STRUCTURES: No significant abnormalities. VISUALIZED UPPER ABDOMEN: Normal. OTHER FINDINGS: None. IMPRESSION: No acute infiltrate. Cardiomegaly. AICD.
== END 2018-09-06 09:45 | disposition left against medical advice (07) ==
LOC: C.ER 07:30
DX: J45.901 Unspecified asthma with (acute) exacerbation (principal); E78.00 Pure hypercholesterolemia, unspecified; I50.9 Heart failure, unspecified; I10 Essential (primary) hypertension
CPT/HCPCS: 71045; 80053; 83880; 84484; 85025; 94640; 99285; J2930

== ENCOUNTER 2018-10-07 14:46 | Emergency (ER) | payer MEDICARE, MEDICAID ==
[2018-10-07 14:46] VITALS: BMI 34.9
[2018-10-07 15:07] VITALS: BP 126/79; PULSE 84; RESP 20; TEMP 97.8; O2SAT 94
--- NOTE | 2018-10-07 15:13 | C.PDOC ---
History Of Present Illness 53 y/o male presents to the ER complaining of nasal congestion and dry non- productive cough which has been present for the past 2 days. Patient states that he has some dizziness. Patient reports that he took Motrin without relief.Denies having fever, chills, nausea, and vomiting. Time Seen by Provider: 10/07/18 15:09 Chief Complaint (Nursing): Cough, Cold, Congestion History Per: Patient History/Exam Limitations: no limitations Onset/Duration Of Symptoms: Days Current Symptoms Are (Timing): Still Present Severity: Moderate Past Medical History Reviewed: Historical Data, Nursing Documentation, Vital Signs Vital Signs: Last Vital Signs Temp 97.8 F 10/07/18 15:02 Pulse 84 10/07/18 15:02 Resp 20 10/07/18 15:02 BP 126/79 10/07/18 15:02 Pulse Ox 94 L 10/07/18 15:02 - Medical History PMH: Anxiety, Asthma, Back Problems, Cardia Arrhythmia, CHF, HTN, Hypercholesterolemia, Sleep Apnea Denies: Chronic Kidney Disease Surgical History: Pacemaker (DEFIB) Denies: Appendectomy Family History: States: No Known Family Hx - Social History Hx Tobacco Use: No Hx Alcohol Use: No Hx Substance Use: No - Immunization History Hx Tetanus Toxoid Vaccination: No Hx Influenza Vaccination: Yes Hx Pneumococcal Vaccination: Yes Review Of Systems Except As Marked, All Systems Reviewed And Found Negative. Constitutional: Negative for: Fever, Chills ENT: Positive for: Nose Congestion Respiratory: Positive for: Cough Gastrointestinal: Negative for: Nausea, Vomiting Neurological: Positive for: Dizziness. Negative for: Headache Physical Exam - Physical Exam Appears: Non-toxic, No Acute Distress, Other (morbidly obese) Skin: Normal Color, Warm, Dry Head: Atraumatic, Normacephalic Eye(s): bilateral: Normal Inspection Nose: Other (nasal congestion) Oral Mucosa: Moist Throat: Erythema (mild erythema), No Exudate Neck: Supple Chest: Symmetrical Cardiovascular: Rhythm Regular Respiratory: Normal Breath Sounds, No Rales, No Rhonchi, No Wheezing Neurological/Psych: Oriented x3, Normal Speech, Normal Motor, Normal Sensation ED Course And Treatment O2 Sat by Pulse Oximetry: 94 (RA) Pulse Ox Interpretation: Normal Progress Note: Patient treated with Motrin PO and Sudafed PO. Medical Decision Making Medical Decision Making: viral syndrome, nasal congestion, dizziness prob due to nasal congestion no neuro deficits Disposition Doctor Will See Patient In The: Office Counseled Patient/Family Regarding: Studies Performed, Diagnosis - Disposition Referrals: Elkin Harrell MD [Staff Provider] - Disposition: HOME/ ROUTINE Disposition Time: 15:13 Condition: GOOD Additional Instructions: Dayquil/Nyquil or equivalent which contain nasal decongestants to treat your nasal/sinus congestion and viral syndrome symptoms outpatient follow-up with Dr. Harrell as needed. Instructions: Sinus Headache (DC), Viral Syndrome (DC) Forms: [employer] (Equatorial Guinean) - Clinical Impression Clinical Impression: Influenza-like illness - Scribe Statement The provider has reviewed the documentation as recorded by the Scribe Aaliyah Yeager Provider Attestation: All medical record entries made by the Scribe were at my direction and personally dictated by me. I have reviewed the chart and agree that the record accurately reflects my personal performance of the history, physical exam, medical decision making, and the department course for this patient. I have also personally directed, reviewed, and agree with the discharge instructions and disposition.
== END 2018-10-07 15:27 | disposition home or self-care (01) ==
LOC: C.ER 14:46
DX: J11.1 Influenza due to unidentified influenza virus with other respiratory manifestations (principal); E78.00 Pure hypercholesterolemia, unspecified; I50.9 Heart failure, unspecified; I10 Essential (primary) hypertension

== ENCOUNTER 2018-11-07 06:02 | Emergency (ER) | payer MEDICARE, MEDICAID ==
[2018-11-07 06:04] VITALS: BMI 34.9
[2018-11-07 06:15] VITALS: BP 132/87; PULSE 91; RESP 16; TEMP 97.7; O2SAT 97
--- NOTE | 2018-11-07 06:35 | C.PDOC ---
History Of Present Illness 53 year old male presents to the ED c/o nasal congestion associated with greenish/yellowish discharge for the past 2 weeks. Patient reports feeling nasal pressure. Patient states he was given a nasal spray by his PMD, however patient reports nasal spray dries his nose. Patient states he developed sores in the corner of his mouth that are burning. Patient denies fever, chills, nausea, vomit, rash, recent travel, sick contacts. Time Seen by Provider: 11/07/18 06:15 Chief Complaint (Nursing): Cough, Cold, Congestion History Per: Patient History/Exam Limitations: no limitations Onset/Duration Of Symptoms: Days Current Symptoms Are (Timing): Still Present Recent travel outside of the [place]: No Additional History Per: Patient Past Medical History Reviewed: Historical Data, Nursing Documentation, Vital Signs Vital Signs: Last Vital Signs Temp 97.7 F 11/07/18 06:12 Pulse 91 H 11/07/18 06:12 Resp 16 11/07/18 06:12 BP 132/87 11/07/18 06:12 Pulse Ox 97 11/07/18 06:12 - Medical History PMH: Anxiety, Asthma, Back Problems, Cardia Arrhythmia, CHF, HTN, Hypercholesterolemia, Sleep Apnea Denies: Chronic Kidney Disease Surgical History: Pacemaker (DEFIB) Denies: Appendectomy Family History: States: Unknown Family Hx - Social History Hx Tobacco Use: No Hx Alcohol Use: No Hx Substance Use: No - Immunization History Hx Tetanus Toxoid Vaccination: No Hx Influenza Vaccination: Yes Hx Pneumococcal Vaccination: Yes Review Of Systems Constitutional: Negative for: Fever, Chills ENT: Positive for: Nose Discharge, Nose Congestion, Mouth Swelling. Negative for: Throat Pain, Throat Swelling Respiratory: Negative for: Cough, Shortness of Breath Gastrointestinal: Negative for: Nausea, Vomiting, Abdominal Pain Skin: Negative for: Rash Neurological: Negative for: Weakness, Numbness, Headache Physical Exam - Physical Exam Appears: Non-toxic, No Acute Distress Skin: Normal Color, Warm, Dry Head: Atraumatic, Normacephalic, Tenderness (sinuses) Eye(s): bilateral: Normal Inspection Ear(s): Bilateral: Normal Oral Mucosa: Moist Lips: Other (cracked red patches to corner of mouth) Throat: Normal, No Erythema, No Exudate, Other (uvula midline, airway patent) Neck: Normal ROM, Supple Chest: Symmetrical Cardiovascular: Rhythm Regular Respiratory: Normal Breath Sounds, No Rales, No Rhonchi, No Wheezing Extremity: Normal ROM Neurological/Psych: Oriented x3, Normal Speech, Normal Cognition Gait: Steady ED Course And Treatment O2 Sat by Pulse Oximetry: 97 (On RA) Pulse Ox Interpretation: Normal Progress Note: Patient was D/C on Augmentin and crea for his mouth sores. Patient was advised to follow up with ENT for further evaluation. Disposition - Disposition Referrals: Cliff Greene MD [Staff Provider] - Travon Guerrier MD [Staff Provider] - Disposition: HOME/ ROUTINE Disposition Time: 06:32 Condition: STABLE Additional Instructions: Follow up with your PMD and ENT specialist within 1-2 days. REturn to ED if feel worse. Prescriptions: Amoxicillin/Clavulanate [Augmentin 875 MG-125 MG] 1 tab PO BID #20 tab Loratadine [Claritin] 10 mg PO DAILY #10 tab Nystatin [Mycostatin Cream] 1 appl EXT TID #1 tube Sodium Chloride [Saline Mist] 1 ml NS Q3 #1 spray Instructions: Sinusitis, Adult (DC), Mouth Sores (DC) Forms: [employer] (Upper Sorbian) - Clinical Impression Clinical Impression: Angular cheilitis, Sinusitis - PA / SEARCH ENGINE OPTIMIZATION ANALYST / Resident Statement MD/DO has reviewed & agrees with the documentation as recorded. - Scribe Statement The provider has reviewed the documentation as recorded by the Scribe Jamey Juarez All medical record entries made by the Scribe were at my direction and personally dictated by me. I have reviewed the chart and agree that the record accurately reflects my personal performance of the history, physical exam, medical decision making, and the department course for this patient. I have also personally directed, reviewed, and agree with the discharge instructions and disposition.
== END 2018-11-07 06:55 | disposition home or self-care (01) ==
LOC: C.ER 06:02
DX: J32.9 Chronic sinusitis, unspecified (principal); K13.0 Diseases of lips; I50.9 Heart failure, unspecified; E78.00 Pure hypercholesterolemia, unspecified; I10 Essential (primary) hypertension

== ENCOUNTER 2018-12-11 22:09 | Emergency (ER) | payer MEDICARE, MEDICAID ==
[2018-12-11 22:10] VITALS: BMI 34.9
[2018-12-11 23:29] LABS: BASO % 0.5 % (0.0-2.0); LYMPH # 0.5 K/uL (1.0-4.3); LYMPH % 5.9 % (20.0-40.0); MEAN CELL VOLUME 92.2 fL (80.0-94.0); MEAN CORPUSCULAR HEMOGLOBIN 30.2 pg (27.0-31.0); MEAN CORPUSCULAR HGB CONC 32.8 g/dL (33.0-37.0); MEAN PLATELET VOLUME 9.4 fL (7.2-11.7); MONO # 0.4 K/uL (0.0-0.8); MONO % 4.5 % (0.0-10.0); NEUT # 7.4 K/uL (1.8-7.0); NEUT % 89.1 % (50.0-75.0); PLATELET COUNT 188 K/uL (130-400); RBC 4.31 Mil/uL (4.40-5.90); RED CELL DISTRIBUTION WIDTH 15.2 % (11.5-14.5); WHITE BLOOD COUNT 8.4 K/uL (4.8-10.8)
[2018-12-11 23:41] LABS: ALB/GLOB RATIO 1.6 (1.0-2.1); ALBUMIN 3.9 g/dL (3.5-5.0); CALCIUM 8.9 mg/dl (8.6-10.4)
[2018-12-11 23:43] LABS: ANISOCYTOSIS SLIGHT; LARGE PLATELETS PRESENT; LYMPHOCYTE 3 % (20-40); MONOCYTE 5 % (0-10); NEUTROPHIL 92 % (50-75); PLATELET ESTIMATE NORMAL (NORMAL); TOTAL CELLS COUNTED 100
[2018-12-11 23:44] LABS: POIKILOCYTOSIS SLIGHT
[2018-12-11 23:45] LABS: OVALOCYTES SLIGHT
[2018-12-11 23:53] LABS: TROPONIN I 0.065 ng/mL (0.00-0.120)
[2018-12-12 00:28] VITALS: BP 132/77; PULSE 81; RESP 22; TEMP 98; O2SAT 96
--- NOTE | 2018-12-12 04:17 | C.PDOC ---
History Of Present Illness 53-year-old male presents to the emergency department with complaints of feeling dizzy and sweating since 9 oclock this evening. Patient denies pain cough recent travel and sit contact. Patient does admit to having dyspnea on exertion. Chief Complaint (Nursing): Dizziness/Lightheaded History Per: Patient History/Exam Limitations: no limitations Onset/Duration Of Symptoms: Hrs Current Symptoms Are (Timing): Still Present Past Medical History Reviewed: Historical Data, Nursing Documentation, Vital Signs Vital Signs: Last Vital Signs Temp 98 F 12/12/18 00:27 Pulse 81 12/12/18 00:27 Resp 22 12/12/18 00:27 BP 132/77 12/12/18 00:27 Pulse Ox 96 12/12/18 00:27 - Medical History PMH: Anxiety, Asthma, Back Problems, Cardia Arrhythmia, CHF, HTN, Hypercholesterolemia, Sleep Apnea Denies: Chronic Kidney Disease Surgical History: Pacemaker (DEFIB) Denies: Appendectomy Family History: States: No Known Family Hx - Social History Hx Tobacco Use: No Hx Alcohol Use: No Hx Substance Use: No - Immunization History Hx Tetanus Toxoid Vaccination: No Hx Influenza Vaccination: Yes Hx Pneumococcal Vaccination: Yes Review Of Systems Except As Marked, All Systems Reviewed And Found Negative. Constitutional: Positive for: Sweats. Negative for: Fever, Chills, Weakness Cardiovascular: Negative for: Chest Pain Respiratory: Positive for: SOB with Excertion. Negative for: Cough Gastrointestinal: Negative for: Nausea, Vomiting, Abdominal Pain, Diarrhea Neurological: Positive for: Dizziness. Negative for: Weakness, Numbness Physical Exam - Physical Exam Appears: Non-toxic, No Acute Distress Skin: Warm, Diaphoretic Head: Atraumatic, Normacephalic Eye(s): bilateral: Normal Inspection, PERRL, EOMI Oral Mucosa: Moist Neck: Normal, Supple Chest: Symmetrical, No Tenderness Cardiovascular: Rhythm Regular, No Murmur, Other (displaced PMI) Respiratory: Rales (minor rales at bases bilaterally), Rhonchi Gastrointestinal/Abdominal: Soft, No Tenderness, No Guarding, No Rebound Neurological/Psych: Oriented x3, Normal Speech, Normal Cognition ED Course And Treatment - Laboratory Results Result Diagrams: 12/11/18 23:26 12/11/18 23:26 Lab Results: Troponin I 0.0650 ng/mL (0.00-0.120) 12/11/18 23:26 NT-Pro-B Natriuret Pep 1760 pg/mL (0-900) H 12/11/18 23:26 Total Bilirubin 0.5 mg/dL (0.2-1.3) 12/11/18 23:26 AST 24 U/L (17-59) 12/11/18 23:26 ALT 62 U/L (21-72) 12/11/18 23:26 Alkaline Phosphatase 48 U/L (38-126) 12/11/18 23:26 Total Protein 6.2 g/dL (6.3-8.3) L 12/11/18 23:26 Albumin 3.9 g/dL (3.5-5.0) 12/11/18 23:26 Globulin 2.4 gm/dL (2.2-3.9) 12/11/18 23:26 Albumin/Globulin Ratio 1.6 (1.0-2.1) 12/11/18 23:26 Interpretation Of ECG: Normal sinus rhythm at 83bpm. Normal axis. LVH with strain pattern. No change from prior EKG 05/2018. O2 Sat by Pulse Oximetry: 96 - Radiology CXR: Interpreted by Me, Viewed By Me CXR Interpretation: Yes: No Acute Disease. No: Infiltrates Medical Decision Making Medical Decision Making: Plan: EKG Chemistry CBC CXR Glucose POC Antiert 25mg PO Aspirin 325mg PO Spoke to Dr. Greene who wanted to admit the patient to telemetry. On interview pt with capacity. Discussed with patient the risks, benefits and alternatives of leaving without completing the evaluation in the emergency department, including and permanent neurologic dysfunction. Patient understands the decision being made, alternative options, the risks and benefits of those options. Pt demonstrated understanding of this information, the ability to apply it to themself and ability to communicate the decision and its consequences. Pt still wishes to leave AMA. Discussed at length with pt the reasons would like for pt to stay for further tx and concerns; however, pt refuses to stay for further tx. Pt understands risk of and/or disability by leaving and still wishes to sign out against medical advice. Pts preference is to leave the hospital and elects to follow up in the outpatient setting rather than stay and have medical workup. Will discharge against medical advice and pt encouraged to return to ED immediately should they change their mind regarding care or if any new concerning symptoms arise. Disposition - Disposition Referrals: Cliff Greene MD [Staff Provider] - Disposition: AGAINST MEDICAL ADVICE Disposition Time: 23:55 Condition: GUARDED Additional Instructions: SADIE ALLEN, thank you for letting us take care of you today. The emergency medical care you received today was directed at your acute symptoms. If you were prescribed any medication, please fill it and take as directed. It may take several days for your symptoms to resolve. Return to the Emergency Department if your symptoms worsen, do not improve, or if you have any other problems. Please contact your doctor or call one of the physicians/clinics you have been referred to that are listed on the Patient Visit Information form that is included in your discharge packet. Bring any paperwork you were given at discharge with you along with any medications you are taking to your follow up visit. Our treatment cannot replace ongoing medical care by a primary care provider outside of the emergency department. Thank you for allowing the [facility] team to be part of your care today. YOU SIGNED OUT AGAINST MEDICAL ADVICE. FOLLOW UP WITH YOUR PRIMARY CARE DOCTOR SOON POSSIBLE. RETURN TO THE EMERGENCY ROOM IF YOU HAVE ANY CONCERNS. Instructions: Heart Failure, Adult (DC) Forms: [employer] (Indonesian) - Clinical Impression Clinical Impression: CHF (congestive heart failure) - Scribe Statement The provider has reviewed the documentation as recorded by the Scribe (Manuel Ramsey) Provider Attestation: All medical record entries made by the Scribe were at my direction and personally dictated by me. I have reviewed the chart and agree that the record accurately reflects my personal performance of the history, physical exam, medical decision making, and the department course for this patient. I have also personally directed, reviewed, and agree with the discharge instructions and disposition.
--- NOTE | 2018-12-12 10:47 | RAD ---
Date of service: 12/11/2018 PROCEDURE: CHEST RADIOGRAPH, 1 VIEW HISTORY: chest pain COMPARISON: Comparison is made with 09/06/2018. FINDINGS: LUNGS: No evidence of infiltrate or consolidation in the lungs. PLEURA: No pneumothorax or pleural fluid seen. CARDIOVASCULAR: No aortic atherosclerotic calcification present. The cardiac silhouette is enlarged. There is left-sided pacemaker is again seen in place. OSSEOUS STRUCTURES: No significant abnormalities. VISUALIZED UPPER ABDOMEN: Normal. OTHER FINDINGS: None. IMPRESSION: No evidence of acute pulmonary disease.
== END 2018-12-12 01:20 | disposition left against medical advice (07) ==
LOC: C.ER 22:09
DX: I50.9 Heart failure, unspecified (principal)

== ENCOUNTER 2019-01-03 22:04 | Emergency (ER) | payer MEDICARE, MEDICAID ==
[2019-01-03 22:05] VITALS: BMI 34.9
[2019-01-03 22:59] VITALS: RESP 18
--- NOTE | 2019-01-04 00:14 | C.PDOC ---
History Of Present Illness 53 year old male with PMHx of HTN and DM presents to the ED c/o dry mouth and white spots on his tongue. Patient reports being recently diagnosed with diabetes. Patient also states he was prescribed Prednisone which he has been taking, patient thinks Prednisone worsened his diabetic symptoms. Patient states he has an appointment with his bottle sorter tomorrow for follow up. Patient denies fever, chills, headache, nausea, vomit, diarrhea, rash, CP, SOB. Time Seen by Provider: 01/03/19 23:05 Chief Complaint (Nursing): ENT Problem History Per: Patient History/Exam Limitations: None Onset/Duration Of Symptoms: Days Current Symptoms Are (Timing): Still Present Quality (Mouth/Throat): Other Symptoms Have Been: Continuous Anticoagulant/Antiplatlet Use?: No Recent Aspirin Use: No Past Medical History Reviewed: Historical Data, Nursing Documentation, Vital Signs Vital Signs: Last Vital Signs Temp 98.5 F 01/03/19 22:55 Pulse 90 01/03/19 22:55 Resp 18 01/03/19 22:55 BP 101/75 01/03/19 22:55 Pulse Ox 96 01/03/19 22:55 - Medical History PMH: Anxiety, Asthma, Back Problems, Cardia Arrhythmia, CHF, HTN, Hypercholesterolemia, Sleep Apnea Denies: Chronic Kidney Disease Surgical History: Pacemaker (DEFIB) Denies: Appendectomy Family History: States: Unknown Family Hx - Social History Hx Tobacco Use: No Hx Alcohol Use: No Hx Substance Use: No - Immunization History Hx Tetanus Toxoid Vaccination: No Hx Influenza Vaccination: Yes Hx Pneumococcal Vaccination: Yes Review Of Systems Constitutional: Negative for: Fever, Chills ENT: Positive for: Mouth Pain. Negative for: Mouth Swelling, Throat Pain Respiratory: Negative for: Cough, Shortness of Breath Gastrointestinal: Negative for: Nausea, Vomiting Skin: Negative for: Rash Neurological: Negative for: Headache Physical Exam - Physical Exam Appears: Non-toxic, No Acute Distress Skin: Normal Color, Warm, Dry, No Rash Head: Atraumatic, Normacephalic Eye(s): bilateral: Normal Inspection Ear(s): Bilateral: Normal Nose: No Discharge Oral Mucosa: Dry, Other (white patches on posterior tongue) Tongue: No Laceration Lips: No Laceration Teeth: Normal Dentition Gingiva: No Bleeding Throat: Normal, No Erythema, No Exudate Neck: Normal ROM, Supple Chest: Symmetrical Cardiovascular: Rhythm Regular Respiratory: Normal Breath Sounds, No Rales, No Rhonchi, No Wheezing Neurological/Psych: Oriented x3, Normal Speech, Normal Cognition Gait: Steady ED Course And Treatment O2 Sat by Pulse Oximetry: 96 (ON RA) Pulse Ox Interpretation: Normal Disposition - Disposition Forms: [employer] (Ukrainian) - PA / ROOF SHINGLER / Resident Statement MD/DO has reviewed & agrees with the documentation as recorded. - Scribe Statement The provider has reviewed the documentation as recorded by the Scribe Jamey Juarez All medical record entries made by the Scribe were at my direction and personally dictated by me. I have reviewed the chart and agree that the record accurately reflects my personal performance of the history, physical exam, medical decision making, and the department course for this patient. I have also personally directed, reviewed, and agree with the discharge instructions and disposition.
--- NOTE | 2019-01-04 00:16 | C.PDOC ---
History Of Present Illness 53 year old male with PMHx of HTN and DM presents to the ED c/o dry mouth and white spots on his tongue. Patient reports being recently diagnosed with diabetes. Patient also states he was prescribed Prednisone which he has been taking, patient thinks Prednisone worsened his diabetic symptoms. Patient states he has an appointment with his supervisor [employer] tomorrow for follow up. Patient denies fever, chills, headache, nausea, vomit, diarrhea, rash, CP, SOB. Time Seen by Provider: 01/03/19 23:05 Chief Complaint (Nursing): ENT Problem History Per: Patient History/Exam Limitations: None Onset/Duration Of Symptoms: Days Current Symptoms Are (Timing): Still Present Quality (Mouth/Throat): Other Symptoms Have Been: Continuous Anticoagulant/Antiplatlet Use?: No Recent Aspirin Use: No Past Medical History Reviewed: Historical Data, Nursing Documentation, Vital Signs Vital Signs: Last Vital Signs Temp 98.5 F 01/03/19 22:55 Pulse 90 01/03/19 22:55 Resp 18 01/03/19 22:55 BP 101/75 01/03/19 22:55 Pulse Ox 96 01/03/19 22:55 - Medical History PMH: Anxiety, Asthma, Back Problems, Cardia Arrhythmia, CHF, HTN, Hypercholesterolemia, Sleep Apnea Denies: Chronic Kidney Disease Surgical History: Pacemaker (DEFIB) Denies: Appendectomy Family History: States: Unknown Family Hx - Social History Hx Tobacco Use: No Hx Alcohol Use: No Hx Substance Use: No - Immunization History Hx Tetanus Toxoid Vaccination: No Hx Influenza Vaccination: Yes Hx Pneumococcal Vaccination: Yes Review Of Systems Constitutional: Negative for: Fever, Chills ENT: Positive for: Mouth Pain. Negative for: Nose Discharge, Nose Congestion, Throat Pain, Throat Swelling Gastrointestinal: Negative for: Nausea, Vomiting Skin: Negative for: Rash Neurological: Negative for: Weakness, Numbness, Headache Physical Exam - Physical Exam Appears: Non-toxic, No Acute Distress Skin: Normal Color, Warm, Dry, No Rash Head: Atraumatic, Normacephalic Eye(s): bilateral: Normal Inspection Ear(s): Bilateral: Normal Nose: No Discharge Oral Mucosa: Dry, Other (white patches posterior tongue) Tongue: No Laceration Lips: No Laceration Teeth: Normal Dentition Gingiva: Normal Appearing Throat: Normal, No Erythema, No Exudate Neck: Normal ROM, Supple Chest: Symmetrical Cardiovascular: Rhythm Regular, No Friction Rub, No Murmur Respiratory: Normal Breath Sounds, No Rales, No Rhonchi, No Stridor, No Wheezing Gastrointestinal/Abdominal: Soft, No Tenderness Back: Normal Inspection, No CVA Tenderness Extremity: Normal ROM, No Swelling Neurological/Psych: Oriented x3, Normal Speech, Normal Cognition, Normal Motor Gait: Steady ED Course And Treatment O2 Sat by Pulse Oximetry: 96 (ON RA) Pulse Ox Interpretation: Normal Medical Decision Making Medical Decision Making: The patient was instructed to follow up with this PMD about discontinuing the prednisone as that can cause thrush and worsening of the diabetes. Disposition - Disposition Referrals: Cliff Greene MD [Staff Provider] - Disposition: HOME/ ROUTINE Disposition Time: 00:14 Condition: GOOD Additional Instructions: Follow up with the medical doctor within 1-2 days, Return if worsened. Prescriptions: Nystatin [Nystatin Oral Susp] 1 ml PO QID #1 bottle Instructions: Thrush (DC) Forms: [employer] (Malian) - Clinical Impression Clinical Impression: Candidiasis of mouth - PA / CRYSTAL ATTACHER / Resident Statement MD/DO has reviewed & agrees with the documentation as recorded. - Scribe Statement The provider has reviewed the documentation as recorded by the Scribe Jamey Juarez All medical record entries made by the Eseibe were at my direction and personally dictated by me. I have reviewed the chart and agree that the record accurately reflects my personal performance of the history, physical exam, medical decision making, and the department course for this patient. I have also personally directed, reviewed, and agree with the discharge instructions and disposition.
[2019-01-04 00:39] VITALS: BP 108/76; PULSE 71; TEMP 97.5
[2019-01-04 05:32] VITALS: O2SAT 96
== END 2019-01-04 00:39 | disposition home or self-care (01) ==
LOC: C.ER 22:04
DX: B37.0 Candidal stomatitis (principal); E11.9 Type 2 diabetes mellitus without complications; E78.00 Pure hypercholesterolemia, unspecified; I50.9 Heart failure, unspecified; I10 Essential (primary) hypertension

== ENCOUNTER 2019-01-09 22:10 | Emergency (ER) | payer MEDICARE, MEDICAID ==
[2019-01-09 22:10] VITALS: BMI 34.9
[2019-01-09] MEDS ORDERED: Sodium Chloride 0.9% 1,000 ML IV ONE (23:04)
[2019-01-09] MEDS ORDERED: Iohexol 240 (50 ml) PO ONE (23:06)
--- NOTE | 2019-01-09 23:07 | C.PDOC ---
History Of Present Illness 53-year-old male presents to the ED for evaluation of left-sided abdominal pain that has been intermittent for a few days. Patient also reports seeing blood in stool intermittently. Patient denies fever, chills, nausea, vomiting. Chief Complaint (Nursing): Abdominal Pain History Per: Patient History/Exam Limitations: no limitations Onset/Duration Of Symptoms: Days, Intermittent Episodes Current Symptoms Are (Timing): Still Present Location Of Pain/Discomfort: Other (left-sided ) Quality Of Discomfort: "Pain" Associated Symptoms: denies: Fever, Chills, Nausea, Vomiting Additional History Per: Patient Past Medical History Reviewed: Historical Data, Nursing Documentation, Vital Signs Vital Signs: Last Vital Signs Temp 97.9 F 01/09/19 22:48 Pulse 64 01/09/19 22:48 Resp 20 01/09/19 22:48 BP 110/72 01/09/19 22:48 Pulse Ox 98 01/09/19 22:48 Primary Care Provider: Cliff Greene - Medical History PMH: Anxiety, Asthma, Back Problems, Cardia Arrhythmia, CHF, HTN, Hypercholesterolemia, Sleep Apnea Denies: Chronic Kidney Disease Surgical History: Pacemaker (DEFIB) Denies: Appendectomy Family History: States: Unknown Family Hx - Social History Hx Tobacco Use: No Hx Alcohol Use: No Hx Substance Use: No - Immunization History Hx Tetanus Toxoid Vaccination: No Hx Influenza Vaccination: Yes Hx Pneumococcal Vaccination: Yes Review Of Systems Constitutional: Negative for: Fever, Chills Gastrointestinal: Positive for: Abdominal Pain (left-sided ), Other (blood in stool intermittently ). Negative for: Nausea, Vomiting Physical Exam - Physical Exam Appears: Non-toxic, No Acute Distress Skin: Normal Color, Warm, Dry Head: Atraumatic, Normacephalic Eye(s): bilateral: Normal Inspection Oral Mucosa: Moist Neck: Supple Chest: Symmetrical, No Deformity, No Tenderness Cardiovascular: Rhythm Regular, No Murmur Respiratory: Normal Breath Sounds, No Rales, No Rhonchi, No Wheezing Gastrointestinal/Abdominal: Soft, Tenderness (left upper and lower quadrants ), No Guarding, No Rebound Extremity: Normal ROM, Capillary Refill (less than 2 seconds ) Neurological/Psych: Oriented x3, Normal Speech, Normal Cognition ED Course And Treatment - Laboratory Results Result Diagrams: 01/09/19 23:33 01/09/19 23:33 O2 Sat by Pulse Oximetry: 98 (on RA) Pulse Ox Interpretation: Normal Progress Note: Bloodwork, urinalysis, CT A/P ordered and reviewed. Toradol IVP and IV Fluids given. Disposition Counseled Patient/Family Regarding: Diagnosis - Disposition Referrals: Cliff Greene MD [Staff Provider] - Disposition: HOME/ ROUTINE Disposition Time: 02:42 Condition: STABLE Prescriptions: Docusate Sodium [Colace] 100 mg PO BID #30 capsule Instructions: Constipation in Adults, Kidney Disease Diet (For People Not on Dialysis) Forms: [employer] (Vietnamese) - POA Present On Arrival: None - Clinical Impression Clinical Impression: Constipation, Abdominal discomfort, Renal insufficiency - Scribe Statement The provider has reviewed the documentation as recorded by the Scribe (Amy Hedrick) Provider Attestation: All medical record entries made by the Scribe were at my direction and personally dictated by me. I have reviewed the chart and agree that the record accurately reflects my personal performance of the history, physical exam, medical decision making, and the department course for this patient. I have also personally directed, reviewed, and agree with the discharge instructions and disposition.
[2019-01-09] MEDS ORDERED: Iohexol 240 (50 ml) ONE (23:20)
[2019-01-09] MEDS ORDERED: Sodium Chloride 0.9% 1,000 ML ONE (23:20)
[2019-01-09 23:37] LABS: BASO # 0.1 K/uL (0.0-0.2); BASO % 0.9 % (0.0-2.0); EOS % 0.6 % (0.0-4.0); HEMOGLOBIN 11.9 g/dL (12.0-18.0); LYMPH # 1.2 K/uL (1.0-4.3); LYMPH % 19.5 % (20.0-40.0); MEAN CELL VOLUME 92.3 fL (80.0-94.0); MEAN CORPUSCULAR HEMOGLOBIN 30.5 pg (27.0-31.0); MEAN PLATELET VOLUME 9.4 fL (7.2-11.7); MONO # 0.5 K/uL (0.0-0.8); MONO % 7.4 % (0.0-10.0); NEUT # 4.5 K/uL (1.8-7.0); NEUT % 71.6 % (50.0-75.0); NRBC % 0.1 % (0.0-2.0); RBC 3.91 Mil/uL (4.40-5.90); RED CELL DISTRIBUTION WIDTH 15.4 % (11.5-14.5); WHITE BLOOD COUNT 6.4 K/uL (4.8-10.8)
[2019-01-09 23:44] LABS: INR 1.1; PROTHROMBIN TIME 12.4 SECONDS (9.7-12.2)
[2019-01-09 23:57] LABS: URINE BILIRUBIN NEGATIVE (NEGATIVE); URINE BLOOD NEGATIVE (NEGATIVE); URINE CLARITY Clear (Clear); URINE COLOR Yellow (YELLOW); URINE GLUCOSE (UA) NORMAL (Normal); URINE LEUKOCYTE ESTERASE NEG Leu/uL (Negative); URINE PROTEIN NEGATIVE (NEGATIVE); URINE UROBILINOGEN NORMAL mg/dL (0.2-1.0)
[2019-01-10 00:12] LABS: ALB/GLOB RATIO 1.5 (1.0-2.1); ALBUMIN 3.5 g/dL (3.5-5.0); CALCIUM 8.8 mg/dl (8.6-10.4)
[2019-01-10] MEDS ORDERED: Iodixanol 320 MG/ML 100 ML BOTTLE IV ONE (00:56)
[2019-01-10 03:10] VITALS: BP 114/76; PULSE 79; RESP 20; TEMP 97.7; O2SAT 96
--- NOTE | 2019-01-10 09:41 | CT ---
Date of service: 01/10/2019 PROCEDURE: CT Abdomen and Pelvis with contrast HISTORY: Abdominal pain/on and off rectal bleed COMPARISON: 06/22/2014. TECHNIQUE: CT scan of the abdomen and pelvis was performed after administration of intravenous contrast. Oral contrast was administered. Coronal and sagittal reformatted images were obtained. Contrast dose: 100 mL Visipaque 320 Radiation dose: Total exam DLP = 1275.77 mGy-cm. This CT exam was performed using one or more of the following dose reduction techniques: Automated exposure control, adjustment of the mA and/or kV according to patient size, and/or use of iterative reconstruction technique. FINDINGS: LOWER THORAX: The visualized lungs are clear. There is moderate cardiomegaly. LIVER: Mild hepatomegaly and fatty liver. Normal homogeneous enhancement. No gross lesion or ductal dilatation. GALLBLADDER AND BILE DUCTS: Contracted. No calcified gallstones, wall thickening or pericholecystic fluid. PANCREAS: Normal in size with homogeneous enhancement. No gross lesion or ductal dilatation. SPLEEN: Normal in size and appearance. ADRENALS: No discrete nodule. KIDNEYS AND URETERS: Normal in size with homogeneous enhancement. No hydronephrosis. There is cortical scarring in the lower pole of the left kidney. No solid mass. VASCULATURE: No aortic aneurysm. There are no aortic atherosclerotic calcifications or mural plaque present. BOWEL: Evaluation of the bowel is limited in the absence of oral contrast. The small bowel loops are normal in caliber. There is moderate amount of stool in the colon. There is scattered colonic diverticulosis without CT evidence for acute diverticulitis. No bowel wall thickening or obstruction. APPENDIX: Normal appendix. PERITONEUM: No free fluid. No free air. LYMPH NODES: No enlarged lymph nodes. BLADDER: Well distended and normal in appearance. REPRODUCTIVE: The prostate gland is normal in size. BONES: No acute fracture. Within normal limits for the patient's age. OTHER FINDINGS: There are bilateral moderate size fat containing inguinal hernias. There is a moderate size fat containing umbilical hernia. IMPRESSION: No acute abdominal or pelvic abnormality. Constipation. Scattered colonic diverticulosis without CT evidence for acute diverticulitis. No bowel obstruction. Mild hepatomegaly and fatty liver. Moderate size fat containing bilateral inguinal hernias and fat containing umbilical hernia. A preliminary report was provided by [employer].
== END 2019-01-10 03:09 | disposition home or self-care (01) ==
LOC: C.ER 22:10
DX: N28.9 Disorder of kidney and ureter, unspecified (principal); K59.00 Constipation, unspecified; R10.9 Unspecified abdominal pain; I11.0 Hypertensive heart disease with heart failure; I50.9 Heart failure, unspecified; E78.00 Pure hypercholesterolemia, unspecified
CPT/HCPCS: 74177; 80053; 81001; 83690; 85025; 85610; 85730; 96374; 99284; J1885; J7030; Q9966; Q9967

== ENCOUNTER 2019-01-20 20:37 | Emergency (ER) | payer MEDICARE, MEDICAID ==
[2019-01-20 20:37] VITALS: BMI 34.9
[2019-01-20 20:56] VITALS: RESP 18
--- NOTE | 2019-01-20 21:53 | C.PDOC ---
History Of Present Illness 53 year old male presents complaining of dry mouth. Patient is diabetic, states his sugar is typically under 200. He was recently treated for oral thrust, still taking nystatin liquid for tongue. Time Seen by Provider: 01/20/19 21:26 Chief Complaint (Nursing): ENT Problem History Per: Patient History/Exam Limitations: None Onset/Duration Of Symptoms: Hrs Current Symptoms Are (Timing): Still Present Past Medical History Reviewed: Historical Data, Nursing Documentation, Vital Signs Vital Signs: Last Vital Signs Temp 98.7 F 01/20/19 20:53 Pulse 90 01/20/19 20:53 Resp 18 01/20/19 20:53 BP 108/78 01/20/19 20:53 Pulse Ox 95 01/20/19 20:53 Primary Care Provider: Cliff Cano - Medical History PMH: Anxiety, Asthma, Back Problems, Cardia Arrhythmia, CHF, HTN, Hypercholesterolemia, Sleep Apnea Denies: Chronic Kidney Disease Surgical History: Pacemaker (DEFIB) Denies: Appendectomy Family History: States: Unknown Family Hx - Social History Hx Tobacco Use: No Hx Alcohol Use: No Hx Substance Use: No - Immunization History Hx Tetanus Toxoid Vaccination: No Hx Influenza Vaccination: Yes Hx Pneumococcal Vaccination: Yes Review Of Systems Constitutional: Negative for: Fever, Chills Cardiovascular: Negative for: Chest Pain, Palpitations Respiratory: Negative for: Cough, Shortness of Breath Gastrointestinal: Negative for: Nausea, Vomiting Neurological: Negative for: Weakness, Numbness Physical Exam - Physical Exam Appears: Non-toxic Skin: Normal Color, Warm Head: Atraumatic, Normacephalic Eye(s): bilateral: Normal Inspection Oral Mucosa: Moist Tongue: Other (Geographic tongue, one small white patch in center questionably consistent with thrush) Teeth: Other (Scant poor dentition) Throat: Normal, No Erythema, No Exudate Neck: Normal, Supple Chest: Symmetrical, No Tenderness Cardiovascular: Rhythm Regular Respiratory: Normal Breath Sounds, No Rales, No Rhonchi, No Wheezing Gastrointestinal/Abdominal: Soft, No Tenderness Neurological/Psych: Oriented x3, Normal Speech ED Course And Treatment O2 Sat by Pulse Oximetry: 95 Medical Decision Making Medical Decision Making: dry mouth recent tx for oral evans- resolved polyuria/polydypsia c/w mod well controlled DM Disposition Doctor Will See Patient In The: Office Counseled Patient/Family Regarding: Studies Performed, Diagnosis - Disposition Referrals: Cliff Cano MD [Staff Provider] - Disposition: HOME/ ROUTINE Disposition Time: 21:53 Condition: GOOD Additional Instructions: continue liberal oral fluids avoid sweet drinks outpatient follow-up w Dr. Cano Instructions: Xerostomia, Why Is Saliva So Important? Forms: [employer] (Arabic) - Clinical Impression Clinical Impression: Clinical xerostomia - Scribe Statement The provider has reviewed the documentation as recorded by the Scribjavad Alvarado All medical record entries made by the Scribe were at my direction and personally dictated by me. I have reviewed the chart and agree that the record accurately reflects my personal performance of the history, physical exam, me dical decision making, and the department course for this patient. I have also personally directed, reviewed, and agree with the discharge instructions and disposition.
[2019-01-20 22:10] VITALS: BP 112/82; PULSE 82; TEMP 98.4
[2019-01-21 00:25] VITALS: O2SAT 95
== END 2019-01-20 22:10 | disposition home or self-care (01) ==
LOC: C.ER 20:37
DX: K11.7 Disturbances of salivary secretion (principal)